=== PATIENT | male | born 1955 | race Caucasian/White ===

== ENCOUNTER → 2018-01-12 | Outpatient (CLI) | payer OTHER ==
--- NOTE | 2018-01-12 13:05 | US ---
EXAMINATION TYPE: US carotid duplex BILAT DATE OF EXAM: 01/12/2018 COMPARISON: NONE CLINICAL HISTORY: 62-year-old male I65.29 Carotid Stenosis. Bruit Technique: Duplex Doppler ultrasound examination. Indirect Doppler criteria was utilized. FINDINGS: RIGHT: Peak Systolic Velocity (PSV) cm/sec ----- Right CCA: 96.3 ----- Right ICA: 77.1 ----- Right ECA: 94.0 ICA/CCA ratio: 0.8 RIGHT: End Diastole cm/sec ----- Right CCA: 30.0 ----- Right ICA: 21.5 ----- Right ECA: 24.1 LEFT: Peak Systolic Velocity (PSV) cm/sec ----- Left CCA: 86.2 ----- Left ICA: 75.4 ----- Left ECA: 111.7 ICA/CCA ratio: 0.9 LEFT: End Diastole cm/sec ----- Left CCA: 24.1 ----- Left ICA: 25.9 ----- Left ECA: 20.4 VERTEBRALS (direction of flow): Right Vertebral: Antegrade Left Vertebral: Antegrade Rhythm: Normal Career Technical Counselor notes: Moderate amount of plaque visualized in bilateral proximal ICAs. No elevated veloc ities visualized. IMPRESSION: No hemodynamically significant stenosis appreciated in either internal carotid artery. Criteria for Assigning % of Stenosis / Diameter reduction (Estimation based on the indirect measurements of the internal carotid artery velocities (ICA PSV). 1. Normal (no stenosis)=ICA PSV < 125 cm/s: ratio < 2.0: ICA EDV<40 cm/s. 2. Less than 50% stenosis=ICA PSV < 125 cm/s: ratio < 2.0: ICA EDV<40 cm/s. 3. 50 to 69% stenosis=ICA PSV of 125 to 230 cm/s: ration 2.0 ? 4.0: ICA EDV 40-100 cm/s. 4. Greater than 70% stenosis to near occlusion= ICA PSV > 230 cm/s: ratio > 4.0: ICA EDV > 100 cm/s. 5. Near occlusion= ICA PSV velocities may be low or undetectable: variable ratio and ICA EDV. 6. Total occlusion=unable to detect flow.
== END | disposition home or self-care (01) ==
LOC: RADUSWWP 12:13
PROVIDERS: ATTEND Family Medicine
DX: I65.29 Occlusion and stenosis of unspecified carotid artery (principal)
CPT/HCPCS: 93880

== ENCOUNTER → 2018-01-27 | Outpatient (CLI) | payer MEDICARE, OTHER ==
--- NOTE | 2018-01-28 09:26 | ECHOF ---
Referral Reason:R01.1 heart murmur MEASUREMENTS -------- HEIGHT: 165.1 cm WEIGHT: 76.2 kg BP: IVSd: 1.0 cm (0.6 - 1.1) LVIDd: 2.8 cm (3.9 - 5.3) LVPWd: 1.0 cm (0.6 - 1.1) IVSs: 1.8 cm LVIDs: 1.7 cm LVPWs: 1.6 cm Ao Diam: 3.3 cm (2.0 - 3.7) AV Cusp: 2.0 cm (1.5 - 2.6) LA Diam: 2.2 cm (2.7 - 3.8) MV EXCURSION: 13.970 mm (> 18.000) MV EF SLOPE: 74 mm/s (70 - 150) EPSS: 0.4 cm MV E Angel: 0.63 m/s MV DecT: 257 ms MV A Angel: 0.86 m/s MV E/A Ratio: 0.73 RAP: 5.00 mmHg RVSP: 11.24 mmHg FINDINGS -------- Sinus rhythm. This was a technically adequate study. The left ventricular size is normal. Left ventricular wall thickness is normal. Overall left vent ricular systolic function is mildly impaired with, an EF between 45 - 50 %. Mid inferoseptal LV wal l motion is hypokinetic. Basal inferolateral hypokinesis. The right ventricle is normal in size and function. The left atrium is normal in size. The right atrium is normal in size. Aortic valve is trileaflet and is mildly thickened. The mitral valve leaflets are mildly thickened. There is trace mitral regurgitation. Trace tricuspid regurgitation present. The right ventricular systolic pressure, as measured by Dopp ler, is 11.24mmHg. Pulmonic valve appears structurally normal. The pericardium is normal. CONCLUSIONS -------- 1. Sinus rhythm. 2. This was a technically adequate study. 3. The left ventricular size is normal. 4. Left ventricular wall thickness is normal. 5. Overall left ventricular systolic function is mildly impaired with, an EF between 45 - 50 %. 6. Mid inferoseptal LV wall motion is hypokinetic. 7. Basal inferolateral hypokinesis. 8. The right ventricle is normal in size and function. 9. The left atrium is normal in size. 10. The right atrium is normal in size. 11. Aortic valve is trileaflet and is mildly thickened. 12. The mitral valve leaflets are mildly thickened. 13. There is trace mitral regurgitation. 14. Trace tricuspid regurgitation present. 15. The right ventricular systolic pressure, as measured by Doppler, is 11.24mmHg. 16. Pulmonic valve appears structurally normal. 17. The pericardium is normal. STEAM TUNNEL FEEDER: Lois Valencia RDCS
== END | disposition home or self-care (01) ==
LOC: RADECHMAIN 13:00
PROVIDERS: ATTEND Family Medicine
DX: I08.0 Rheumatic disorders of both mitral and aortic valves (principal)
CPT/HCPCS: 93306

== ENCOUNTER → 2018-02-27 | Outpatient (CLI) | payer MEDICARE, OTHER ==
[~2018-02-27] MED LIST: REGADENOSON 0.4 MG/5 ML SYRINGE IV ONE
--- NOTE | 2018-02-27 10:29 | P.STRESS ---
- Stress Test Note Stress Test Results/Findings: Exam Performed: NM stress lexiscan cardiolite Exam Date: 02/27/18 Reason for Exam: Chest Pain Height: 5 ft 5 in Weight: 75.296 kg Protocol: Dee Scan Stage: na Duration of Exercise: na Resting Heart Rate: 78 Resting Blood Pressure: 95/62 Maximum Achieved Heart Rate: 113 Maximum Achieved Blood Pressure: 114/80 85% PMHR: na 100% PMHR: na METS: na Technologist Comment: Stress Test Results/Findings: Baseline heart rate 78 beats a minute, Baseline blood pressure 95/62 mmHg Baseline 12-lead ECG shows sinus rhythm with normal ST segments Patient received Lexiscan infusion per protocol mild increase in heart rate up to 113 beats a minute Blood pressure remained stable No chest pain No ECG evidence of ischemia Nuclear portion will be reported separately
--- NOTE | 2018-02-27 10:47 | NM ---
EXAMINATION TYPE: NM stress lexiscan cardiolite DATE OF EXAM: 02/27/2018 COMPARISON: NONE HISTORY: Coronary artery disease per order. History of tobacco use quit 6 years ago, hypercholesterol emia, hypertension, and family history of heart attack presents with chest pain, difficulty in breath ing. TECHNIQUE: After the intravenous administration of 10.12 mCi Tc 99m Sestamibi - Cardiolite resting S PECT images acquired 45 minutes post injection. The patient received 0.4mg Lexiscan, 24.9 mCi Tc 99m Sestamibi - Stress images obtained [address] injection FINDINGS: Review of stress and rest SPECT images demonstrates no distinct perfusion abnormality. Gated analysi s shows normal wall motion with an estimated left ventricular ejection fraction of 56 %. IMPRESSION: No scintigraphic evidence for reversible ischemia.
== END | disposition home or self-care (01) ==
LOC: RADNMMAIN 07:39
PROVIDERS: ATTEND Family Medicine
DX: I25.10 Atherosclerotic heart disease of native coronary artery without angina pectoris (principal)
CPT/HCPCS: 93017; 78452; A9500; J2785

== ENCOUNTER → 2018-03-11 | Outpatient (CLI) | payer MEDICARE, OTHER ==
--- NOTE | 2018-03-12 07:17 | CT ---
EXAMINATION TYPE: CT chest w con DATE OF EXAM: 03/11/2018 COMPARISON: Prior chest CT May 18, 2013 HISTORY: Shortness of breath and history of chronic obstructive pulmonary disorder. CT DLP: 468 mGycm Automated exposure control for dose reduction was used. CONTRAST: CT scan of the chest is performed with IV Contrast, patient injected with 100ml mL of Isovue M300. FINDINGS: LUNGS: Fairly moderate underlying emphysematous change is redemonstrated most prominent in lung apice s. There is some peripheral reticulation and scarring in the right middle lobe near diaphragm. There is mild biapical pleural/parenchymal scarring redemonstrated. A few scattered micronodules are presen t, for reference subpleural region right middle lobe 2 mm nodule axial image 39 and left midlung ante rior 3 mm nodule axial image 24 unchanged from prior. No new greater than 5 mm parenchymal nodule or mass is seen. No suspicious consolidation or groundglass opacity is seen. No pleural effusion or pneu mothorax is noted bilaterally. MEDIASTINUM: There are no greater than 1 cm hilar or mediastinal lymph nodes. There are stable promin ent paracarinal lymph node measuring 1.5 x 0.8 cm axial image 21. No cardiomegaly or pericardial eff usion is seen. Coronary artery calcification is present which is noted marker for coronary artery di sease. There is mild to moderate atherosclerotic change to ectatic aorta redemonstrated. OTHER: Localizer redemonstrates dextroconvex scoliosis in the lumbar spine with moderate to severe m ultilevel spurring and disc space narrowing. Small degree of bilateral gynecomastia is redemonstrated . Only a few tiny splenule inferior to spleen are seen. Slight thickening to both adrenal glands is a gain seen favoring benign hyperplasia. Small hiatal hernia is noted. IMPRESSION: Chronic changes without acute pulmonary process.
== END | disposition home or self-care (01) ==
LOC: RADCTMAIN 15:39
PROVIDERS: ATTEND Family Medicine
DX: J44.9 Chronic obstructive pulmonary disease, unspecified (principal)
CPT/HCPCS: 71260; Q9967

== ENCOUNTER → 2018-04-02 | Outpatient (CLI) | payer MEDICARE, OTHER ==
--- NOTE | 2018-04-06 08:07 | USB ---
Reason for exam: clinical finding. Physical Findings: Nurse did not find any significant physical abnormalities on exam. US Breast BILAT Right limited breast ultrasound including focal area of concern, retroareolar and axilla demonstrates no cystic or solid lesion seen. Left limited breast ultrasound including focal area of concern, retroareolar and axilla demonstrates no cystic or solid lesion seen. The bilateral subareolar regions were scanned. No solid or cystic lesion. No appreciable gynecomastia by ultrasound to correspond to the mild gynecomastia seen on CT on 03/11/18. These results were verbally communicated with the patient and result sheet given to the patient on 04/02/18. ASSESSMENT: Negative, BI-RAD 1 RECOMMENDATION: Clinical management of both breasts. Manage patient on a clinical basis.
== END | disposition home or self-care (01) ==
LOC: RADUSWWP 14:45
PROVIDERS: ATTEND Family Medicine
DX: N62 Hypertrophy of breast (principal)

== ENCOUNTER 2019-07-07 10:29 | Day surgery (SDC) | payer MEDICARE, OTHER ==
[2019-07-05 09:16] VITALS: BMI 25.4
[~2019-07-07 10:29] MED LIST changes: +LACTATED RINGERS 1,000 ML IV SCH; +LIDOCAINE 1% 20 ML VIAL (10MG/ML) FOR IV START INTRADERMA PRN; -REGADENOSON 0.4 MG/5 ML SYRINGE IV ONE
[2019-07-07 11:58] VITALS: RESP 18; TEMP 97.4
[2019-07-07] MEDS ORDERED: PROPOFOL 10 MG/ML 20 ML VIAL IV ONE (12:16)
[2019-07-07] MEDS ORDERED: LIDOCAINE 1% INJ 10MG/ML (20 ML MDV) ONE (12:16)
--- NOTE | 2019-07-07 12:21 | P.GSHP ---
History of Present Illness H&P Date: 07/07/19 Chief Complaint: Screening colonoscopy This a 64-year-old male who presents today for screening colonoscopy. Patient denies a significant GI complaints. Past Medical History Past Medical History: COPD, GERD/Reflux, Myocardial Infarction (AR), Osteoarthritis (OA) Last Myocardial Infarction Date:: UNKNOWN SHOWS ON EKG ,ECHO" PER PATIENT History of Any Multi-Drug Resistant Organisms: None Reported Past Surgical History: Appendectomy, Back Surgery, Tonsillectomy Additional Past Surgical History / Comment(s): CERVICAL SURGERY WITH PLATE, COLONOSCOPY Past Anesthesia/Blood Transfusion Reactions: No Reported Reaction Smoking Status: Former smoker - Past Family History Mother Family Medical History: No Reported History Medications and Allergies Home Medications Medication Instructions Recorded Confirmed Type Albuterol Inhaler [Ventolin Hfa 1 - 2 puff INHALATION RT-Q6H PRN 07/05/19 07/07/19 History Inhaler] Albuterol Sulfate [Accuneb] 0.63 mg INHALATION TID 07/05/19 07/07/19 History Aspirin 81 mg PO DAILY 07/05/19 07/07/19 History Diclofenac Sodium [Voltaren] 50 mg PO TID PRN 07/05/19 07/07/19 History Gabapentin [Neurontin] 300 mg PO TID 07/05/19 07/07/19 History Gemfibrozil [Lopid] 600 mg PO DAILY 07/05/19 07/07/19 History Ipratropium Nebulized [Atrovent 0.2 mg INHALATION TID 07/05/19 07/07/19 History Nebulized 0.2 MG/ML] Lisinopril-Hctz 20-12.5 mg 1 tab PO DAILY 07/05/19 07/07/19 History [Zestoretic 20-12.5] Omeprazole 20 mg PO DAILY 07/05/19 07/07/19 History Tiotropium 18 Mcg/Puff [Spiriva] 2 puff INHALATION DAILY 07/05/19 07/07/19 History Allergies Allergy/AdvReac Type Severity Reaction Status Date / Time Srhojdw-Eut-Xgi Reductase Allergy MUSCLE Verified 07/07/19 11:41 Inhibitor PAIN , ELEVATED LIVER ENZYMES Surgical - Exam Vital Signs Temp Pulse Resp BP Pulse Ox 97.4 F L 83 18 142/67 96 07/07/19 11:56 07/07/19 11:56 07/07/19 11:56 07/07/19 11:56 07/07/19 11:56 - General well developed, well nourished, no distress - Eyes PERRL - ENT normal pinna - Neck no masses - Respiratory normal expansion - Cardiovascular Rhythm: regular - Abdomen Abdomen: soft, non tender Assessment and Plan Assessment: We'll perform screening colonoscopy.
--- NOTE | 2019-07-07 12:37 | P.OP ---
Date of Procedure: 07/07/19 Preoperative Diagnosis: Screening colonoscopy Postoperative Diagnosis: Normal colon Procedure(s) Performed: Colonoscopy Anesthesia: MAC Surgeon: Dallas Delvalle Pathology: none sent Condition: stable Disposition: PACU Description of Procedure: PROCEDURE: The patient was placed on the endoscopy table in the lateral position. Digital rectal examination was performed which revealed no abnormalities. The prostate was symmetrical without nodules. Flexible colonoscope was then placed in the patient's anus and passed throughout the entire colon. The ileocecal valve was visualized. The cecum, ascending, transverse, descending and sigmoid colon were normal. The rectum was normal as well. There were no masses, polyps or diverticula noted in the entire colon. SUMMARY OF FINDINGS: Normal colonoscopy.
[2019-07-07 13:12] VITALS: BP 122/75; PULSE 91
== END 2019-07-07 13:49 | disposition home or self-care (01) ==
LOC: ORWHC2ENDO 10:29
PROVIDERS: ATTEND Surgery
DX: Z12.11 Encounter for screening for malignant neoplasm of colon (principal); J44.9 Chronic obstructive pulmonary disease, unspecified; K21.9 Gastro-esophageal reflux disease without esophagitis; I25.2 Old myocardial infarction; M19.90 Unspecified osteoarthritis, unspecified site; Z98.1 Arthrodesis status; Z79.82 Long term (current) use of aspirin; Z79.899 Other long term (current) drug therapy; Z88.8 Allergy status to other drugs, medicaments and biological substances
CPT/HCPCS: J2001; J2704; G0121

== ENCOUNTER 2020-07-20 10:48 | Inpatient (IN) | payer MEDICARE, OTHER ==
[2020-07-20] MEDS ORDERED: ETODOLAC 200 MG CAPSULE PO PRN (17:20)
[2020-07-20] MEDS ORDERED: ALBUTEROL NEBULIZED 2.5 MG/3 ML INHALATION PRN (17:20)
[2020-07-20 18:16] LABS: Anisocytosis Slight; Basophils # (A) 0.1 k/uL (0-0.2); Basophils % (A) 0 %; Eosinophils # (A) 0.4 k/uL (0-0.7); Eosinophils % (A) 3 %; HCT 22.8 % (39.0-53.0); Hypochromasia Marked; Lymphocytes # (A) 1.5 k/uL (1.0-4.8); Lymphocytes % (A) 12 %; MCH 25.4 pg (25.0-35.0); MCHC 29.6 g/dL (31.0-37.0); MCV 85.5 fL (80.0-100.0); Mean Platelet Volume 6.4; Monocytes # (A) 0.8 k/uL (0-1.0); Monocytes % (A) 6 %; Neutrophils # (A) 10.1 k/uL (1.3-7.7); Neutrophils % (A) 77 %; Platelet Count 950 k/uL (150-450); Poikilocytosis Slight; RBC 2.66 m/uL (4.30-5.90); RDW 16.2 % (11.5-15.5); WBC 13.2 k/uL (3.8-10.6)
[2020-07-20 18:26] LABS: HGB 6.8 gm/dL (13.0-17.5)
[2020-07-20] MEDS ORDERED: FUROSEMIDE 10 MG/ML 2 ML VIAL IV ONE (18:45)
--- NOTE | 2020-07-20 19:02 | HP ---
HISTORY AND PHYSICAL This is a 65-year-old white male who was admitted with a hemoglobin of 6.6 and severe pallor, lightheadedness, dizziness with ambulation, worse weakness in his left leg. Due to severe anemia he was admitted to the hospital and worked up for GI bleeding and blood transfusion will be given. HOME MEDICATIONS: Home medications include: 1. Ventolin nebulizer 2.5 mg q.i.d. 2. Aspirin 81 mg daily. 3. Lodine 200 mg t.i.d. p.r.n. 4. Fenofibrate 160 mg daily. 5. Neurontin 300 t.i.d. 6. DuoNeb updraft q.i.d. 7. Linzess 290 mg daily. 8. Lisinopril hydrochlorothiazide 20/12.5 one daily. 9. Protonix 40 mg daily. REVIEW OF SYSTEMS: Fourteen-point review of systems: Weakness, lethargy, lightheadedness, dizziness, pallor, dizziness with ambulation. LABS: Repeat labs are pending in the hospital. PHYSICAL EXAMINATION: He looks dehydrated with poor skin pallor, pasty skin. Pulse 91, respiratory rate 16- 18, blood pressure 97/57, oxygen saturation 98% on room air. CARDIOVASCULAR: S1, S2. LUNGS: Decreased breath sounds x4. MUSCULOSKELETAL: Tenderness to palpation of paralumbar spinal muscles. He looks his stated age. OPHTHALMOLOGIC: He wears glasses. Rectal exam not done at this point. Stool Hemoccult. ASSESSMENT: 1. Severe anemia, unclear etiology, without gastrointestinal bleed. 2. History of chronic constipation. 3. Lumbar disc disease. 4. Neuropathy. Please see further orders. MMODL / IJN: [id number] /
--- NOTE | 2020-07-20 19:25 | XR ---
EXAMINATION: XR chest 2V DATE AND TIME: 07/20/2020 7:15 PM CLINICAL INDICATION: PHH; anemia high wbc TECHNIQUE: AP and lateral views COMPARISON: 08/16/2014 FINDINGS: The lungs are clear. The pleural spaces are negative. The cardiac silhouette is not enlarged. The remainder of the mediastinal silhouette is unremarkable. The skeletal structures and soft tissues are negative for acute findings. IMPRESSION: NO ACUTE PROCESS.
[2020-07-20 19:45] LABS: Prothrombin Time 10.2 sec (9.0-12.0)
[2020-07-20] MEDS ORDERED: IPRATROPIUM 0.5 MG/2.5 ML NEBU INHALATION SCH (20:00)
[2020-07-20] MEDS ORDERED: ALBUTEROL NEBULIZED 2.5 MG/3 ML INHALATION SCH (20:00)
[2020-07-20] MEDS: IPRATROPIUM-ALBUTEROL 3 ML NEB INHALATION SCH (20:05)
[2020-07-20] MEDS: SODIUM CHLORIDE 0.9% 1,000 ML IV SCH (20:15)
[2020-07-20] MEDS: GABAPENTIN 300 MG CAP PO SCH (21:16)
[2020-07-20 21:47] LABS: Appearance,Urine Clear (Clear); Bilirubin,Urine Negative (Negative); Blood,Urine Negative (Negative); Color,Urine Light Yellow; Glucose,Urine (UA) Negative (Negative); Ketones,Urine Negative (Negative); Leukocyte Esterase,Urine Negative (Negative); Nitrite,Urine Negative (Negative); Protein,Urine Negative (Negative); Specific Gravity,Urine 1.009 (1.001-1.035); Urobilinogen,Urine <2.0 mg/dL (<2.0)
[2020-07-21] MEDS: IPRATROPIUM-ALBUTEROL 3 ML NEB INHALATION SCH ×3 (07:07→19:23)
[2020-07-21] MEDS ORDERED: PANTOPRAZOLE 40 MG TABLET PO SCH (07:30)
[2020-07-21] MEDS ORDERED: NON FORMULARY DRUG (Tiotropium 18 Mcg/Puff 1 PUFF Inhaler) INHALATION SCH (08:00)
[2020-07-21] MEDS: FENOFIBRATE 160 MG TAB PO SCH (09:14)
[2020-07-21] MEDS: LISINOPRIL-HCTZ 20-12.5 MG 1 EACH TAB PO SCH (09:14)
[2020-07-21] MEDS: GABAPENTIN 300 MG CAP PO SCH ×3 (09:14→21:32)
[2020-07-21] MEDS: ASPIRIN 81 MG PO SCH (09:14)
[2020-07-21] MEDS: Linaclotide [Linzess] PO SCH (09:15)
[2020-07-21 10:59] LABS: Anisocytosis Slight; Basophils # (A) 0.1 k/uL (0-0.2); Basophils % (A) 0 %; Eosinophils # (A) 0.2 k/uL (0-0.7); Eosinophils % (A) 1 %; HCT 27.1 % (39.0-53.0); Hypochromasia Marked; Lymphocytes # (A) 1.2 k/uL (1.0-4.8); Lymphocytes % (A) 7 %; MCH 26.3 pg (25.0-35.0); MCHC 30.6 g/dL (31.0-37.0); Mean Platelet Volume 6.3; Monocytes # (A) 0.9 k/uL (0-1.0); Monocytes % (A) 5 %; Neutrophils % (A) 84 %; Platelet Count 936 k/uL (150-450); Poikilocytosis Slight; RBC 3.15 m/uL (4.30-5.90); RDW 16.1 % (11.5-15.5); WBC 16.6 k/uL (3.8-10.6)
[2020-07-21 11:09] LABS: ALT 14 U/L (4-49); AST 19 U/L (17-59); African American GFR (CKD) >90 (>60 ml/min/1.73 sqM); Albumin 2.9 g/dL (3.5-5.0); Alkaline Phosphatase 62 U/L (38-126); Anion Gap 7 mmol/L; Blood Urea Nitrogen 13 mg/dL (9-20); Calcium 8.3 mg/dL (8.4-10.2); Carbon Dioxide 23 mmol/L (22-30); Chloride 101 mmol/L (98-107); Glucose 100 mg/dL (74-99); HGB 8.3 gm/dL (13.0-17.5); Non-African American GFR(CKD) >90 (>60 ml/min/1.73 sqM); Sodium 131 mmol/L (137-145); Total Bilirubin 0.3 mg/dL (0.2-1.3); Total Protein 6.2 g/dL (6.3-8.2)
--- NOTE | 2020-07-21 12:03 | P.CONS ---
History of Present Illness - Reason for Consult Consult date: 07/21/20 Anemia Requesting physician: Axel Borden - Chief Complaint Fatigue and abdominal pain - History of Present Illness Mr. Anderson is a 65-year-old male who presented to [facility] with complaints of symptomatic anemia. On arrival hemoglobin 6.6. He has a known history of COPD, GERD, myocardial infarction, arthritis, appendectomy, constipation and irritable bowel syndrome. Complained of lightheadedness and dizziness with movement and ambulation. Admits to abdominal discomfort and exertional dyspnea. Described in lower abdomen, on exam mild tenderness RUQ. He admits to one episode of dark reddish bowel movement last week but denies any recent, although last bowel movement was 2 days ago. He denies any nausea or vomiting. Last Colonoscopy June 2019 unremarkable. No EGD per patient in history. We have been consulted to further evaluate patient symptomatic anemia. Noted in his CBC was also thrombocytosis, platelet coung 936K today, and leukocytosis, neutrophils 16.6. General surgery is following and plan is for GI work-up Friday. He does admit to weight loss and decreased po intake over the past few months. Review of Systems All systems: negative Constitutional: Reports as per HPI Past Medical History Past Medical History: COPD, GERD/Reflux, Myocardial Infarction (PR), Osteoarthritis (OA) Last Myocardial Infarction Date:: UNKNOWN SHOWS ON EKG ,ECHO" PER PATIENT History of Any Multi-Drug Resistant Organisms: None Reported Past Surgical History: Appendectomy, Back Surgery, Tonsillectomy Additional Past Surgical History / Comment(s): CERVICAL SURGERY WITH PLATE, COLONOSCOPY Past Anesthesia/Blood Transfusion Reactions: No Reported Reaction Past Psychological History: No Psychological Hx Reported Smoking Status: Former smoker Past Alcohol Use History: None Reported Additional Past Alcohol Use History / Comment(s): STARTED SMOKING AT AGE 12 QUIT AT AGE 57 SMOKED 1- 3 PPD Past Drug Use History: None Reported - Past Family History Mother Family Medical History: No Reported History Medications and Allergies Home Medications Medication Instructions Recorded Confirmed Type Aspirin 81 mg PO DAILY 07/05/19 07/20/20 History Diclofenac Sodium [Voltaren] 50 mg PO TID PRN 07/05/19 07/20/20 History Gabapentin [Neurontin] 300 mg PO TID 07/05/19 07/20/20 History Ipratropium Nebulized [Atrovent 0.5 mg INHALATION RT-TID 07/05/19 07/20/20 History Nebulized 0.2 MG/ML] Lisinopril-Hctz 20-12.5 mg 1 tab PO DAILY 07/05/19 07/20/20 History [Zestoretic 20-12.5] Omeprazole 20 mg PO DAILY 07/05/19 07/20/20 History Tiotropium 18 Mcg/Puff [Spiriva] 1 cap INHALATION RT-DAILY 07/05/19 07/20/20 History gemfibroziL [Lopid] 600 mg PO DAILY 07/05/19 07/20/20 History Albuterol Nebulized [Ventolin 2.5 mg INHALATION RT-TID 07/20/20 07/20/20 History Nebulized] Albuterol Sulfate [Ventolin HFA] 2 puff INHALATION RT-QID PRN 07/20/20 07/20/20 History Linaclotide [Linzess] 290 mcg PO DAILY 07/20/20 07/20/20 History Allergies Allergy/AdvReac Type Severity Reaction Status Date / Time Bpijguj-Pio-Egu Reductase AdvReac MUSCLE Verified 07/20/20 17:24 Inhibitor PAIN , ELEVATED LIVER ENZYMES Physical Exam Vitals: Vital Signs Temp Pulse Pulse Resp BP BP Pulse Ox 07/21/20 11:47 16 07/21/20 08:00 98.9 F 96 16 97/61 98 07/21/20 07:19 80 07/21/20 07:07 82 07/21/20 04:00 97 18 108/56 97 07/21/20 01:40 87 18 98/52 07/21/20 00:00 91 18 88/55 100 07/20/20 23:22 98 F 91 18 88/55 100 07/20/20 22:52 98.2 F 87 20 85/53 98 07/20/20 22:42 98.3 F 87 18 84/54 98 07/20/20 20:14 84 07/20/20 20:10 92 L 07/20/20 20:06 87 07/20/20 20:00 98.4 F 84 18 92/53 96 07/20/20 16:00 91 16 97/57 98 Intake and Output 07/20/20 07/21/20 07/21/20 22:59 06:59 14:59 Intake Total 240 310 Balance 240 310 Intake: Oral 240 Blood Product 0 310 Rc As-1 Unit 0 310 [id number] Other: Voiding Method Toilet Toilet Toilet Weight 66.8 kg 64.7 kg - General well developed, well nourished, no distress - Eyes PERRL - ENT normal mucus membranes - Neck no masses, supple - Respiratory normal expansion, no increased effort CTA - Cardiovascular Rhythm: regular, Tachy - Abdomen soft, RUQ mild tenderness on palpation - Ext/MCS: No unilateral weakness or edema Psych: Calm Neuro: Non Focal Results CBC & Chem 7: 07/21/20 10:21 07/21/20 10:21 Labs: Abnormal Lab Results - Last 24 Hours (Table) 07/20/20 07/20/20 07/21/20 Range/Units 17:42 18:52 10:21 WBC 13.2 H (3.8-10.6) k/uL RBC 2.66 L (4.30-5.90) m/uL Hgb 6.8 L* (13.0-17.5) gm/dL Hct 22.8 L (39.0-53.0) % MCHC 29.6 L (31.0-37.0) g/dL RDW 16.2 H (11.5-15.5) % Plt Count 950 H (150-450) k/uL Neutrophils # 10.1 H (1.3-7.7) k/uL Sodium 131 L (137-145) mmol/L Glucose 100 H (74-99) mg/dL Calcium 8.3 L (8.4-10.2) mg/dL Total Protein 6.2 L (6.3-8.2) g/dL Albumin 2.9 L (3.5-5.0) g/dL Crossmatch See Detail 07/21/20 Range/Units 10:21 WBC 16.6 H (3.8-10.6) k/uL RBC 3.15 L (4.30-5.90) m/uL Hgb 8.3 L D (13.0-17.5) gm/dL Hct 27.1 L (39.0-53.0) % MCHC 30.6 L (31.0-37.0) g/dL RDW 16.1 H (11.5-15.5) % Plt Count 936 H (150-450) k/uL Neutrophils # 14.0 H (1.3-7.7) k/uL Sodium (137-145) mmol/L Glucose (74-99) mg/dL Calcium (8.4-10.2) mg/dL Total Protein (6.3-8.2) g/dL Albumin (3.5-5.0) g/dL Crossmatch Assessment and Plan (1) Normocytic anemia Current Visit: Yes Status: Acute Code(s): D64.9 - ANEMIA, UNSPECIFIED SNOMED Code(s): 917780401 (2) Thrombocytosis Current Visit: Yes Status: Acute Code(s): D47.3 - ESSENTIAL (HEMORRHAGIC) THROMBOCYTHEMIA SNOMED Code(s): 9756799 (3) Leukocytosis Current Visit: Yes Status: Acute Code(s): D72.829 - ELEVATED WHITE BLOOD CELL COUNT, UNSPECIFIED SNOMED Code(s): 517811716 Plan: Normocytic Anemia: - Iron studies and nutritional work-up has been ordered, iron studies maybe altered given they were drawn after tranfusion of PRBC - GI exam scheduled for tomorrow (07/22) with gen surgery) - Further evaluation after results of above Thrombocytosis: - THis maybe reactive to an iron deficiency or acute blood loss anemia, although quite high - Consideration of myeoproliferative disorders within differential - CT abdomen and pelvis to further evaluate after colonoscopy and EGD is completed Leukocytosis: - Reactive most likely etiology - Again will further assess for possible underlying MPD after initial GI work- up by Gen Surgery - Infectious work-up neg/pending Physician Attest: I have completed the full history and physical and developed the above impression and plan, agree with dictation by Gladys Carney NP. Dictated as a scribe.
[2020-07-21 12:22] LABS: Reticulocyte % 3.2 % (0.5-2.0)
--- NOTE | 2020-07-21 14:10 | P.GSCN ---
History of Present Illness Consult date: 07/21/20 History of present illness: CHIEF COMPLAINT: Anemia HISTORY OF PRESENT ILLNESS: This is a 65-year-old male with a known history of COPD, GERD, myocardial infarction, arthritis, appendectomy, constipation and irritable bowel syndrome. Patient was admitted to the hospital for a hemoglobin of 6.6 with lightheadedness and dizziness with ambulation. patient does report some mild mid to lower abdominal discomfort. He has been having dark reddish bowel movements. He denies any bright red blood in the stools. He reports his last bowel movement was 2 days ago. He denies any nausea or vomiting. Patient does report feeling more short of breath and weak. He has been on Lodine daily for pain. He reports never having an EGD. Patient does report possibly having a colonoscopy a few months ago. However last colonoscopy in the computer system is from June 2019 which does revealing normal colonoscopy. PAST MEDICAL HISTORY: See list. PAST SURGICAL HISTORY: See list. MEDICATIONS: See list. ALLERGIES: See list. SOCIAL HISTORY: No illicit drug use. REVIEW OF SYSTEMS: CONSTITUTIONAL: Denies fever or chills. HEENT: Denies blurred vision, vision changes, or eye pain. Denies hemoptysis CARDIOVASCULAR: Denies chest pain or pressure. RESPIRATORY: No shortness of breath. GASTROINTESTINAL: See HPI for pertinent findings HEMATOLOGIC: Denies bleeding disorders. GENITOURINARY: Denies any blood in urine or increased urinary frequency. SKIN: Denies pruitis. Denies rash. PHYSICAL EXAM: VITAL SIGNS: Reviewed GENERAL: Well-developed in no acute distress. HEENT: No sclera icterus. Extraocular movements grossly intact. Moist buccal mucosa. Head is atraumatic, normocephalic. No nasal drainage. ABDOMEN: Soft. Nondistended. Mild lower abdominal tenderness with palpation NEUROLOGIC: Alert and oriented. Cranial nerves II through XII grossly intact. LABORATORY DATA: WBC 16.6 hemoglobin has gone up from 6.8-8.3 UA negative IMAGING: ASSESSMENT: 1. Acute blood loss anemia with possible GI bleed 2. daily NSAID use 3. Prior history of myocardial infarction 4. History of COPD 5. History of osteoarthritis 6. History of GERD PLAN: -Plan for EGD and colonoscopy on Friday with Dr. Delvalle -start GoLYTELY prep and clear liquid diet on Friday -Nothing by mouth after midnight on Friday -Discontinue Lodine -Check stool for occult blood -We will switch patient to Protonix 40 mg IV daily Thank you for this consultation Physician Physicist Astrophysics note has been reviewed by physician. Signing provider agrees with the documented findings, assessment, and plan of care. Past Medical History Past Medical History: COPD, GERD/Reflux, Myocardial Infarction (PA), Osteoarthritis (OA) Last Myocardial Infarction Date:: UNKNOWN SHOWS ON EKG ,ECHO" PER PATIENT History of Any Multi-Drug Resistant Organisms: None Reported Past Surgical History: Appendectomy, Back Surgery, Tonsillectomy Additional Past Surgical History / Comment(s): CERVICAL SURGERY WITH PLATE, COLONOSCOPY Past Anesthesia/Blood Transfusion Reactions: No Reported Reaction Past Psychological History: No Psychological Hx Reported Smoking Status: Former smoker Past Alcohol Use History: None Reported Additional Past Alcohol Use History / Comment(s): STARTED SMOKING AT AGE 12 QUIT AT AGE 57 SMOKED 1- 3 PPD Past Drug Use History: None Reported - Past Family History Mother Family Medical History: No Reported History Medications and Allergies Home Medications Medication Instructions Recorded Confirmed Type Aspirin 81 mg PO DAILY 07/05/19 07/20/20 History Diclofenac Sodium [Voltaren] 50 mg PO TID PRN 07/05/19 07/20/20 History Gabapentin [Neurontin] 300 mg PO TID 07/05/19 07/20/20 History Ipratropium Nebulized [Atrovent 0.5 mg INHALATION RT-TID 07/05/19 07/20/20 History Nebulized 0.2 MG/ML] Lisinopril-Hctz 20-12.5 mg 1 tab PO DAILY 07/05/19 07/20/20 History [Zestoretic 20-12.5] Omeprazole 20 mg PO DAILY 07/05/19 07/20/20 History Tiotropium 18 Mcg/Puff [Spiriva] 1 cap INHALATION RT-DAILY 07/05/19 07/20/20 History gemfibroziL [Lopid] 600 mg PO DAILY 07/05/19 07/20/20 History Albuterol Nebulized [Ventolin 2.5 mg INHALATION RT-TID 07/20/20 07/20/20 History Nebulized] Albuterol Sulfate [Ventolin HFA] 2 puff INHALATION RT-QID PRN 07/20/20 07/20/20 History Linaclotide [Linzess] 290 mcg PO DAILY 07/20/20 07/20/20 History Allergies Allergy/AdvReac Type Severity Reaction Status Date / Time Immxsfa-Ern-Cqt Reductase AdvReac MUSCLE Verified 07/20/20 17:24 Inhibitor PAIN , ELEVATED LIVER ENZYMES Surgical - Exam Vital Signs Pulse Resp BP Pulse Ox 91 16 97/57 98 07/20/20 16:00 07/20/20 16:00 07/20/20 16:00 07/20/20 16:00 Results - Labs 07/21/20 10:21 07/21/20 10:21 Abnormal Lab Results - Last 24 Hours (Table) 07/20/20 07/20/20 07/21/20 Range/Units 17:42 18:52 10:21 WBC 13.2 H (3.8-10.6) k/uL RBC 2.66 L (4.30-5.90) m/uL Hgb 6.8 L* (13.0-17.5) gm/dL Hct 22.8 L (39.0-53.0) % MCHC 29.6 L (31.0-37.0) g/dL RDW 16.2 H (11.5-15.5) % Plt Count 950 H (150-450) k/uL Neutrophils # 10.1 H (1.3-7.7) k/uL Retic Count (0.5-2.0) % Sodium 131 L (137-145) mmol/L Glucose 100 H (74-99) mg/dL Calcium 8.3 L (8.4-10.2) mg/dL Total Protein 6.2 L (6.3-8.2) g/dL Albumin 2.9 L (3.5-5.0) g/dL Crossmatch See Detail 07/21/20 07/21/20 Range/Units 10:21 10:21 WBC 16.6 H (3.8-10.6) k/uL RBC 3.15 L (4.30-5.90) m/uL Hgb 8.3 L D (13.0-17.5) gm/dL Hct 27.1 L (39.0-53.0) % MCHC 30.6 L (31.0-37.0) g/dL RDW 16.1 H (11.5-15.5) % Plt Count 936 H (150-450) k/uL Neutrophils # 14.0 H (1.3-7.7) k/uL Retic Count 3.2 H (0.5-2.0) % Sodium (137-145) mmol/L Glucose (74-99) mg/dL Calcium (8.4-10.2) mg/dL Total Protein (6.3-8.2) g/dL Albumin (3.5-5.0) g/dL Crossmatch Diabetes panel 07/21/20 Range/Units 10:21 Sodium 131 L (137-145) mmol/L Potassium 5.0 (3.5-5.1) mmol/L Chloride 101 (98-107) mmol/L Carbon Dioxide 23 (22-30) mmol/L BUN 13 (9-20) mg/dL Creatinine 0.80 (0.66-1.25) mg/dL Glucose 100 H (74-99) mg/dL Calcium 8.3 L (8.4-10.2) mg/dL AST 19 (17-59) U/L ALT 14 (4-49) U/L Alkaline Phosphatase 62 (38-126) U/L Total Protein 6.2 L (6.3-8.2) g/dL Albumin 2.9 L (3.5-5.0) g/dL Calcium panel 07/21/20 Range/Units 10:21 Calcium 8.3 L (8.4-10.2) mg/dL Albumin 2.9 L (3.5-5.0) g/dL Pituitary panel 07/21/20 Range/Units 10:21 Sodium 131 L (137-145) mmol/L Potassium 5.0 (3.5-5.1) mmol/L Chloride 101 (98-107) mmol/L Carbon Dioxide 23 (22-30) mmol/L BUN 13 (9-20) mg/dL Creatinine 0.80 (0.66-1.25) mg/dL Glucose 100 H (74-99) mg/dL Calcium 8.3 L (8.4-10.2) mg/dL Adrenal panel 07/21/20 Range/Units 10:21 Sodium 131 L (137-145) mmol/L Potassium 5.0 (3.5-5.1) mmol/L Chloride 101 (98-107) mmol/L Carbon Dioxide 23 (22-30) mmol/L BUN 13 (9-20) mg/dL Creatinine 0.80 (0.66-1.25) mg/dL Glucose 100 H (74-99) mg/dL Calcium 8.3 L (8.4-10.2) mg/dL Total Bilirubin 0.3 (0.2-1.3) mg/dL AST 19 (17-59) U/L ALT 14 (4-49) U/L Alkaline Phosphatase 62 (38-126) U/L Total Protein 6.2 L (6.3-8.2) g/dL Albumin 2.9 L (3.5-5.0) g/dL
[2020-07-21] MEDS ORDERED: HYDROcodone/APAP 5-325MG 1 EACH TAB PO PRN (14:47)
[2020-07-21] MEDS ORDERED: ALPRAZolam 0.25 MG TAB PO PRN (14:47)
[2020-07-21] MEDS ORDERED: HYDROmorphone 0.5 MG/0.5 ML SYRINGE IVP PRN (14:47)
[2020-07-21] MEDS ORDERED: ACETAMINOPHEN TAB 500 MG TAB PO PRN (14:47)
--- NOTE | 2020-07-21 15:33 | PN ---
PROGRESS NOTE DATE OF SERVICE: 07/21/2020 I am covering for Dr. Borden. This 65-year-old gentleman admitted with severe anemia is being closely monitored at this time. The patient's hemoglobin was 6.8. After transfusion it is 8.3. Multiple consultants are following the patient closely. No GI bleed was noted. The patient apparently had a colonoscopy recently by Dr. Delvalle which was reported as normal. The patient is being closely monitored at this time. Today's hemoglobin is 8.3, as mentioned earlier. White count is elevated. Past medical history reviewed. REVIEW OF SYSTEMS: CARDIOVASCULAR SYSTEM: No angina, palpitations. RESPIRATORY SYSTEM: As mentioned earlier. GI: No nausea, vomiting, diarrhea. : No dysuria or retention. NERVOUS SYSTEM: No numbness, weakness. CURRENT MEDICATIONS: Reviewed. They include Ventolin, DuoNeb, aspirin, Lofibra, Neurontin, Zestoretic, Linzess, Protonix and GoLYTELY. PHYSICAL EXAMINATION: Patient is alert and oriented x3. Pulse 84, blood pressure 112/63, respirations 16, temperature normal. Pulse ox 99% on 2 L. HEENT: Conjunctivae pale. NECK: No jugular venous distention. CARDIOVASCULAR SYSTEM: S1, S2 muffled. RESPIRATORY SYSTEM: Breath sounds diminished at the bases. No rhonchi. No crackles. ABDOMEN: Soft. NERVOUS SYSTEM: No focal deficit. LABS: WBC 16.6, hemoglobin 8.3. ASSESSMENT: 1. Severe normocytic anemia for evaluation. Rule out GI bleed. 2. Increased white count. 3. Status post blood transfusion. 4. Increased platelets. 5. Hyponatremia. 6. History of chronic obstructive pulmonary disease. 7. Gastroesophageal reflux disease. 8. Degenerative joint disease. 9. History of back surgery. 10.History of appendectomy. 11.History of cervical surgery. 12.Remote history of nicotine dependence. RECOMMENDATIONS AND DISCUSSION: In this 65-year-old gentleman who presented with multiple complex medical issues, we will monitor the patient closely, continue the current medications, continue with symptomatic treatment. Surgery has seen the patient. Hematology/Oncology has also been consulted and recommended further evaluation. Suggest planning a repeat colonoscopy and EGD on Friday. GoLYTELY has been initiated. Guarded prognosis. Further recommendations to follow. Will repeat the hemoglobin. MMODL / IJN: [id number] /
[2020-07-21] MEDS: PANTOPRAZOLE 40 MG/10 ML VIAL IVP SCH (16:38)
[2020-07-21] MEDS: SODIUM CHLORIDE 0.9% 1,000 ML IV SCH (16:38)
--- NOTE | 2020-07-21 18:59 | CT ---
EXAMINATION TYPE: CT ChestAbdPelvis wo con DATE OF EXAM: 07/21/2020 COMPARISON: 03/11/2018 and prior. HISTORY: Generalized pain CT DLP: 609.1 mGycm. Automated Exposure Control for Dose Reduction was Utilized. TECHNIQUE: CT scan of the thorax, abdomen and pelvis is performed without IV contrast. FINDINGS: LUNGS: There is moderate centrilobular emphysema. There is mild bibasilar atelectasis. No significant infiltrate, consolidation, pleural effusion or pneumothorax. No suspicious pulmonary nodule. MEDIASTINUM: There are no greater than 1 cm hilar or mediastinal lymph nodes. No pericardial effusi on is seen. OTHER: No additional significant abnormality is seen. LIVER/GB: No significant abnormality is appreciated. PANCREAS: No significant abnormality is seen. SPLEEN: No significant abnormality is seen. ADRENALS: Stable bilateral mild thickening of the adrenal glands. KIDNEYS: No significant abnormality is seen. BOWEL: Multiple mildly dilated mid to distal small bowel loops with fecal sign seen. Associated surro unding mild fat stranding. No free air or fluid. GENITAL ORGANS: No gross abnormality seen. LYMPH NODES: No greater than 1cm abdominal or pelvic lymph nodes are appreciated. OSSEOUS STRUCTURES: No acute abnormality is seen. Mild thoracic and severe lumbar spondylosis. OTHER: No significant additional abnormality is seen. IMPRESSION: Multiple mildly dilated mid to distal small bowel loops, concerning for low-grade partial small bowel obstruction. No free air or fluid. No acute cardiopulmonary abnormality. Chronic findings as above.
[2020-07-21] MEDS ORDERED: IOPAMIDOL CONTRAST (ORAL USE) VIAL PO PRN (21:06)
[2020-07-21 21:20] LABS: Ferritin 101.6 ng/mL (22.0-322.0); Folate, Serum 9.6 ng/mL
[2020-07-21 21:22] LABS: % Iron Saturation 1.96 (15.00-50.00)
[2020-07-22 07:40] LABS: Anisocytosis Slight; Basophils # (A) 0.1 k/uL (0-0.2); Basophils % (A) 1 %; Eosinophils # (A) 0.1 k/uL (0-0.7); Eosinophils % (A) 1 %; HCT 27.6 % (39.0-53.0); HGB 8.2 gm/dL (13.0-17.5); Hypochromasia Marked; Lymphocytes # (A) 1.5 k/uL (1.0-4.8); Lymphocytes % (A) 10 %; MCH 25.6 pg (25.0-35.0); MCHC 29.8 g/dL (31.0-37.0); MCV 85.7 fL (80.0-100.0); Mean Platelet Volume 6.4; Monocytes # (A) 1.1 k/uL (0-1.0); Monocytes % (A) 7 %; Neutrophils # (A) 11.8 k/uL (1.3-7.7); Neutrophils % (A) 79 %; Platelet Count 905 k/uL (150-450); Poikilocytosis Slight; RBC 3.22 m/uL (4.30-5.90); RDW 16.2 % (11.5-15.5); WBC 14.9 k/uL (3.8-10.6)
[2020-07-22 07:55] LABS: African American GFR (CKD) >90 (>60 ml/min/1.73 sqM); Anion Gap 5 mmol/L; Blood Urea Nitrogen 14 mg/dL (9-20); Calcium 8.1 mg/dL (8.4-10.2); Carbon Dioxide 27 mmol/L (22-30); Chloride 99 mmol/L (98-107); Glucose 96 mg/dL (74-99); Non-African American GFR(CKD) >90 (>60 ml/min/1.73 sqM); Potassium 4.6 mmol/L (3.5-5.1); Sodium 131 mmol/L (137-145)
[2020-07-22] MEDS: IPRATROPIUM-ALBUTEROL 3 ML NEB INHALATION SCH ×3 (08:02→20:17)
[2020-07-22] MEDS: LISINOPRIL-HCTZ 20-12.5 MG 1 EACH TAB PO SCH (08:55)
[2020-07-22] MEDS: PANTOPRAZOLE 40 MG/10 ML VIAL IVP SCH (08:55)
[2020-07-22] MEDS: GABAPENTIN 300 MG CAP PO SCH ×3 (08:56→21:39)
[2020-07-22] MEDS: FENOFIBRATE 160 MG TAB PO SCH (08:56)
[2020-07-22] MEDS: ASPIRIN 81 MG PO SCH (08:56)
[2020-07-22] MEDS: Linaclotide [Linzess] PO SCH (09:05)
--- NOTE | 2020-07-22 09:50 | P.PN ---
Subjective Progress Note Date: 07/22/20 Patient feels somewhat stronger. However generalized weakness does persist. He denied any obvious bleeding. Continues to have vague abdominal discomfort off and on. Objective - Vital Signs Vital signs: Vital Signs Temp 98.9 F 07/21/20 20:00 Pulse 82 07/22/20 08:11 Resp 16 07/22/20 03:50 BP 105/59 07/22/20 03:50 Pulse Ox 98 07/22/20 03:50 Intake & Output 07/21/20 07/22/20 07/22/20 18:59 06:59 18:59 Intake Total 360 0 Output Total 600 Balance 360 -600 0 Weight 65.4 kg Intake: Oral 360 0 Output: Urine 600 Other: Voiding Method Toilet Toilet Urinal # Voids 4 - Constitutional General appearance: Present: no acute distress - EENT Eyes: Present: EOMI ENT: Present: hearing grossly normal, normal oropharynx - Neck Thyroid: bilateral: normal size - Respiratory Respiratory: bilateral: CTA - Cardiovascular Rhythm: regular Heart sounds: normal: S1, S2 - Gastrointestinal General gastrointestinal: Present: normal bowel sounds, soft - Integumentary Integumentary: Present: normal - Neurologic Neurologic: Present: CNII-XII intact - Musculoskeletal Musculoskeletal: Present: generalized weakness, strength equal bilaterally - Psychiatric Psychiatric: Present: A&O x's 3, appropriate affect - Labs CBC & Chem 7: 07/22/20 07:15 07/22/20 07:15 Labs: Abnormal Lab Results - Last 24 Hours (Table) 07/21/20 07/21/20 07/21/20 Range/Units 10:21 10:21 10:21 WBC 16.6 H (3.8-10.6) k/uL RBC 3.15 L (4.30-5.90) m/uL Hgb 8.3 L D (13.0-17.5) gm/dL Hct 27.1 L (39.0-53.0) % MCHC 30.6 L (31.0-37.0) g/dL RDW 16.1 H (11.5-15.5) % Plt Count 936 H (150-450) k/uL Neutrophils # 14.0 H (1.3-7.7) k/uL Monocytes # (0-1.0) k/uL Retic Count 3.2 H (0.5-2.0) % Sodium 131 L (137-145) mmol/L Glucose 100 H (74-99) mg/dL Calcium 8.3 L (8.4-10.2) mg/dL Iron (65-175) ug/dL % Saturation (15.00-50.00) Total Protein 6.2 L (6.3-8.2) g/dL Albumin 2.9 L (3.5-5.0) g/dL 07/21/20 07/22/20 07/22/20 Range/Units 10:21 07:15 07:15 WBC 14.9 H (3.8-10.6) k/uL RBC 3.22 L (4.30-5.90) m/uL Hgb 8.2 L (13.0-17.5) gm/dL Hct 27.6 L (39.0-53.0) % MCHC 29.8 L (31.0-37.0) g/dL RDW 16.2 H (11.5-15.5) % Plt Count 905 H (150-450) k/uL Neutrophils # 11.8 H (1.3-7.7) k/uL Monocytes # 1.1 H (0-1.0) k/uL Retic Count (0.5-2.0) % Sodium 131 L (137-145) mmol/L Glucose (74-99) mg/dL Calcium 8.1 L (8.4-10.2) mg/dL Iron 5 L (65-175) ug/dL % Saturation 1.96 L (15.00-50.00) Total Protein (6.3-8.2) g/dL Albumin (3.5-5.0) g/dL Assessment and Plan (1) Anemia Narrative/Plan: Labs are confirmatory for iron deficiency. Saturation is only in the 1% range. Ferritin is also just about 100 despite the labs being drawn after blood transfusion. - It was discussed with the patient that this confirms most likely severe iron deficiency. Given the clinical picture is the main differential diagnosis would be GI blood loss. Therefore agree with surgical consultation and plan for additional endoscopic workup. Patient is supposed to have EGD on 07/24/20. - IV iron supplementation in the hospital. Start patient on oral iron at discharge. - Patient also had CT of the abdomen and pelvis due to his complains of abdominal pain and weight loss. This shows possibility of some partial small bowel obstruction without obvious mass, adenopathy or fluid. Findings appear to be somewhat nonspecific. Await surgical input. Current Visit: Yes Status: Acute Code(s): D64.9 - ANEMIA, UNSPECIFIED SNOMED Code(s): 650495094 (2) Thrombocytosis Narrative/Plan: Given labs showing severe iron deficiency, and anemia, this is most likely reac tive. Follow platelet counts outpatient with ongoing iron supplementation. Current Visit: Yes Status: Acute Code(s): D47.3 - ESSENTIAL (HEMORRHAGIC) THROMBOCYTHEMIA SNOMED Code(s): 3021190
[2020-07-22] MEDS: SODIUM FERRIC GLUCONAT-SUCROSE 125 MG in SODIUM CHLORIDE 0.9% 100 ML IVPB SCH (11:02)
--- NOTE | 2020-07-22 14:02 | P.PN ---
Subjective Progress Note Date: 07/22/20 CHIEF COMPLAINT: Acute blood loss anemia HISTORY OF PRESENT ILLNESS: The patient is a 65-year-old male presents with acute blood loss anemia, hemoglobin 6.8. He received 1 unit of blood transfusions. Hemoglobin is up between 8.2-8.3. He reports chronic constipation and takes Linzess for symptoms. No bowel movements last night. Last colonoscopy 1 year ago per his recollection. He denies any knowledge of colon cancer in his family. ROS: No reports of nausea and vomiting. No bowel movements. No fevers or chills. No new chest pain. No productive sputum PHYSICAL EXAM: VITAL SIGNS: Reviewed CONSTITUTIONAL: Well developed and in no acute distress. EYES: Conjuctivae without sclera icterus. Extraocular movements grossly intact. Wears glasses. HEAD, EARS, NOSE, THROAT: Moist buccal mucosa. Head is atraumatic, normocephalic. Hears conversational speech. No nasal drainage. NECK: Supple. No thyroidomegaly. RESPIRATORY: Non-labored respirations and equal bilateral excursions. CARDIOVASCULAR: Palpable 2+ radial pulses. ABDOMEN: Soft. No peritonitis. Non tender. MUSCULOSKELETAL: No gross deformity of the lower extremities noted. No clubbing. No cyanosis. SKIN: Good skin turgor. Well perfused. NEUROLOGIC: Cranial nerves II through XII grossly intact. No focal or lateralizing signs. PSYCH: Appropriate affect. Alert and oriented to person, place and time. CLINICAL LABS: White blood cell count elevated 14.9. Hemoglobin is stable from a 0.3-8.2. ASSESSMENT: 1. Acute Blood loss anemia PLAN: 1. Recommend upper and lower endoscopies for evaluation of gastrointestinal bleed Objective - Vital Signs Vital signs: Vital Signs Temp 98.9 F 07/21/20 20:00 Pulse 82 07/22/20 08:11 Resp 16 07/22/20 03:50 BP 105/59 07/22/20 03:50 Pulse Ox 98 07/22/20 03:50 Intake & Output 07/21/20 07/22/20 07/22/20 18:59 06:59 18:59 Intake Total 360 0 Output Total 600 Balance 360 -600 0 Weight 65.4 kg Intake: Oral 360 0 Output: Urine 600 Other: Voiding Method Toilet Toilet Urinal # Voids 4 - Labs CBC & Chem 7: 07/22/20 07:15 10/24/20 07:15 Labs: Abnormal Lab Results - Last 24 Hours (Table) 07/21/20 07/21/20 07/21/20 Range/Units 10:21 10:21 10:21 WBC 16.6 H (3.8-10.6) k/uL RBC 3.15 L (4.30-5.90) m/uL Hgb 8.3 L D (13.0-17.5) gm/dL Hct 27.1 L (39.0-53.0) % MCHC 30.6 L (31.0-37.0) g/dL RDW 16.1 H (11.5-15.5) % Plt Count 936 H (150-450) k/uL Neutrophils # 14.0 H (1.3-7.7) k/uL Monocytes # (0-1.0) k/uL Retic Count 3.2 H (0.5-2.0) % Sodium 131 L (137-145) mmol/L Glucose 100 H (74-99) mg/dL Calcium 8.3 L (8.4-10.2) mg/dL Iron (65-175) ug/dL % Saturation (15.00-50.00) Total Protein 6.2 L (6.3-8.2) g/dL Albumin 2.9 L (3.5-5.0) g/dL 07/21/20 07/22/20 07/22/20 Range/Units 10:21 07:15 07:15 WBC 14.9 H (3.8-10.6) k/uL RBC 3.22 L (4.30-5.90) m/uL Hgb 8.2 L (13.0-17.5) gm/dL Hct 27.6 L (39.0-53.0) % MCHC 29.8 L (31.0-37.0) g/dL RDW 16.2 H (11.5-15.5) % Plt Count 905 H (150-450) k/uL Neutrophils # 11.8 H (1.3-7.7) k/uL Monocytes # 1.1 H (0-1.0) k/uL Retic Count (0.5-2.0) % Sodium 131 L (137-145) mmol/L Glucose (74-99) mg/dL Calcium 8.1 L (8.4-10.2) mg/dL Iron 5 L (65-175) ug/dL % Saturation 1.96 L (15.00-50.00) Total Protein (6.3-8.2) g/dL Albumin (3.5-5.0) g/dL
[2020-07-22] MEDS: SODIUM CHLORIDE 0.9% 1,000 ML IV SCH (17:03)
--- NOTE | 2020-07-22 18:27 | PN ---
PROGRESS NOTE DATE OF SERVICE: 07/22/2020 I am covering for Dr. Borden. This 65-year-old gentleman admitted with significant anemia is being closely monitored. Surgery is planning possible endoscopies on Friday. The CT scan of the chest, abdomen and pelvis showed multiple mildly dilated mid to distal small bowel loops, considering low-grade partial small-bowel obstruction and other chronic findings also. Hemoglobin is currently at 8.2. No active bleeding is noted. PAST MEDICAL HISTORY: Reviewed. REVIEW OF SYSTEMS: CARDIOVASCULAR SYSTEM: No angina or palpitations. RESPIRATIONS as mentioned earlier. GI: As mentioned earlier. : No dysuria. NERVOUS SYSTEM: No focal deficits. CURRENT MEDICATIONS: Reviewed and include: 1. Tylenol. 2. [place]. 3. Ventolin. 4. Xanax. 5. Aspirin. 6. Lofibra. 7. Dilaudid. 9. Protonix. 10.Doses reviewed. PHYSICAL EXAMINATION: The patient is alert and oriented times three. Pulse 103. Blood pressure 92/62, respirations 17, temperature 97.8, pulse ox 98% on 2 L. HEENT: Conjunctivae normal. NECK: No JVD. CARDIOVASCULAR: S1, S2 muffled. RESPIRATORY: Breath sounds diminished in the bases. No rhonchi. No crackles. ABDOMEN: Soft. Mild diffuse distention. Nontender. No mass palpable. LEGS are no edema. No swelling. NERVOUS SYSTEM: No focal deficits. LABS: WBC 14.9, hemoglobin is 8.2. ASSESSMENT: 1. Severe normocytic anemia for evaluation, rule out gastrointestinal bleed status post blood transfusion. 2. Increased WBC, possibly reactive. 3. Status post blood transfusion. 4. Increased platelets. 5. Possible partial small-bowel obstruction. 6. Hyponatremia. 7. History of chronic obstructive pulmonary disease. 8. Gastroesophageal reflux disease. 9. Degenerative joint disease. 10.History of back surgery. 11.History of appendectomy. 12.History of cervical surgery. 13.Remote history of nicotine dependence. RECOMMENDATIONS AND DISCUSSION: I recommend to continue current medications, management and symptomatic treatment. Otherwise endoscopies per surgery. Dr. Burgess's input appreciated. White count is elevated. The exact etiology undetermined. I would recommend a course of empiric antibiotics also at this time. Otherwise, prognosis guarded. Further recommendations to follow. MMODL / IJN: [id number] / XU
[2020-07-23] MEDS: SODIUM CHLORIDE 0.9% 1,000 ML IV SCH (06:16)
[2020-07-23 06:42] LABS: Anisocytosis Slight; Basophils % (A) 0 %; Eosinophils # (A) 0.2 k/uL (0-0.7); Eosinophils % (A) 1 %; HCT 26.2 % (39.0-53.0); Hypochromasia Marked; Lymphocytes # (A) 1.3 k/uL (1.0-4.8); Lymphocytes % (A) 12 %; MCH 26.3 pg (25.0-35.0); MCHC 30.6 g/dL (31.0-37.0); MCV 85.9 fL (80.0-100.0); Mean Platelet Volume 6.3; Monocytes # (A) 0.5 k/uL (0-1.0); Monocytes % (A) 5 %; Neutrophils % (A) 80 %; Platelet Count 876 k/uL (150-450); Poikilocytosis Slight; RBC 3.05 m/uL (4.30-5.90); RDW 16.3 % (11.5-15.5); WBC 11.2 k/uL (3.8-10.6)
[2020-07-23 06:52] LABS: African American GFR (CKD) >90 (>60 ml/min/1.73 sqM); Anion Gap 4 mmol/L; Blood Urea Nitrogen 11 mg/dL (9-20); Calcium 7.9 mg/dL (8.4-10.2); Carbon Dioxide 27 mmol/L (22-30); Chloride 102 mmol/L (98-107); Glucose 99 mg/dL (74-99); Non-African American GFR(CKD) >90 (>60 ml/min/1.73 sqM); Potassium 4.6 mmol/L (3.5-5.1); Sodium 133 mmol/L (137-145)
[2020-07-23] MEDS: IPRATROPIUM-ALBUTEROL 3 ML NEB INHALATION SCH ×3 (07:27→19:23)
[2020-07-23] MEDS ORDERED: PEG 3350-NA SULF,BICARB,CL/KCL 4,000 ML BOTTLE PO ONE (08:00)
[2020-07-23] MEDS: LISINOPRIL-HCTZ 20-12.5 MG 1 EACH TAB PO SCH (08:41)
[2020-07-23] MEDS: Linaclotide [Linzess] PO SCH (08:41)
[2020-07-23] MEDS: FENOFIBRATE 160 MG TAB PO SCH (08:43)
[2020-07-23] MEDS: ASPIRIN 81 MG PO SCH (08:43)
[2020-07-23] MEDS: PANTOPRAZOLE 40 MG/10 ML VIAL IVP SCH (08:43)
[2020-07-23] MEDS: GABAPENTIN 300 MG CAP PO SCH ×3 (08:43→21:28)
[2020-07-23] MEDS: SODIUM FERRIC GLUCONAT-SUCROSE 125 MG in SODIUM CHLORIDE 0.9% 100 ML IVPB SCH (10:14)
--- NOTE | 2020-07-23 15:32 | PN ---
PROGRESS NOTE DATE OF SERVICE: 07/23/2020. HISTORY: This 65-year-old gentleman who was admitted with severe normocytic anemia with possible gastrointestinal bleed is scheduled for endoscopic surgery tomorrow. No chest pain. No palpitations. No fever. The patient is also getting IV Ancef. Abdominal CT scan showed possible partial small-bowel obstruction to be considered. PAST MEDICAL HISTORY: Reviewed. PHYSICAL EXAMINATION: The patient is alert, oriented x3. Pulse 98, blood pressure 100/60, respiration 18, temperature 97.8, pulse ox 98% on 2 L HEENT: Conjunctivae normal. NECK: Supple. LUNGS: Breath sounds diminished at the bases. No rhonchi no crackles. ABDOMEN: Soft, nontender. Mild diffuse distention. LEGS: No edema. No swelling. LABS: WBC 7.2, hemoglobin is 8, sodium is 133. ASSESSMENT: 1. Severe normocytic anemia for evaluation possibly acute on chronic gastrointestinal blood loss anemia status post blood transfusion, for endoscopies, upper and lower. 2. Increased WBC possibly reactive. 3. Status post blood transfusion. 4. Increased platelets. 5. Possible partial small-bowel obstruction. 6. Hyponatremia. 7. History of chronic obstructive pulmonary disease. 8. Gastroesophageal reflux disease. 9. Degenerative joint disease. 10.History of back surgery. 11.History of appendectomy. 12.History of cervical surgery. 13.Remote history of nicotine dependence. RECOMMENDATIONS AND DISCUSSION: Recommend to continue current management and symptomatic treatment. CT scans, CT abdomen and pelvis noted. Closely follow with surgery. Possible endoscopies. Repeat hemoglobin. Recommend close followup with Dr. Borden in the outpatient setting after discharge. MMODL / IJN: [id number] /
--- NOTE | 2020-07-23 15:36 | P.PN ---
Subjective Progress Note Date: 07/23/20 CHIEF COMPLAINT: Acute blood loss anemia HISTORY OF PRESENT ILLNESS: The patient is a 65-year-old male presents with acute blood loss anemia, hemoglobin 6.8. He received 1 unit of blood transfusion. He is tolerating his bowel prep. He is on the commode and having bowel movements. ROS: No reports of nausea and vomiting. No fevers or chills. No new chest pain. No productive sputum PHYSICAL EXAM: VITAL SIGNS: Reviewed CONSTITUTIONAL: Well developed and in no acute distress. EYES: Conjuctivae without sclera icterus. Extraocular movements grossly intact. Wears glasses. HEAD, EARS, NOSE, THROAT: Moist buccal mucosa. Head is atraumatic, normocephalic. Hears conversational speech. No nasal drainage. NECK: Supple. No thyroidomegaly. RESPIRATORY: Non-labored respirations and equal bilateral excursions. CARDIOVASCULAR: Regular rate and rhythm. ABDOMEN: Soft. No peritonitis. Non tender. MUSCULOSKELETAL: No gross deformity of the lower extremities noted. SKIN: Good skin turgor. Well perfused. NEUROLOGIC: Cranial nerves II through XII grossly intact. No focal or lateralizing signs. PSYCH: Appropriate affect. Alert and oriented to person, place and time. CLINICAL LABS: White blood cell count elevated 14.9 down to 11.2. Hemoglobin is 8.2 to 8.0 ASSESSMENT: 1. Acute Blood loss anemia PLAN: 1. Continue bowel prep 2. Lower scope for tomorrow. Objective - Vital Signs Vital signs: Vital Signs Temp 97.8 F 07/23/20 12:00 Pulse 98 07/23/20 12:00 Resp 18 07/23/20 12:00 BP 104/63 07/23/20 12:00 Pulse Ox 96 07/23/20 12:00 Intake & Output 07/22/20 07/23/20 07/23/20 18:59 06:59 18:59 Intake Total 118 250 480 Output Total 400 650 300 Balance -282 -400 180 Weight 66 kg Intake: Oral 118 250 480 Output: Urine 400 650 300 Other: Voiding Method Toilet Toilet Urinal Urinal Urinal # Voids 1 1 # Bowel Movements 1 - Labs CBC & Chem 7: 07/23/20 06:09 07/23/20 06:09 Labs: Abnormal Lab Results - Last 24 Hours (Table) 07/23/20 07/23/20 Range/Units 06:09 06:09 WBC 11.2 H (3.8-10.6) k/uL RBC 3.05 L (4.30-5.90) m/uL Hgb 8.0 L (13.0-17.5) gm/dL Hct 26.2 L (39.0-53.0) % MCHC 30.6 L (31.0-37.0) g/dL RDW 16.3 H (11.5-15.5) % Plt Count 876 H (150-450) k/uL Neutrophils # 9.0 H (1.3-7.7) k/uL Sodium 133 L (137-145) mmol/L Calcium 7.9 L (8.4-10.2) mg/dL Microbiology - Last 24 Hours (Table) 07/22/20 22:00 Urine Culture - Preliminary Urine,Voided
[2020-07-24] MEDS: SODIUM CHLORIDE 0.9% 1,000 ML IV SCH ×2 (05:27→21:23)
[2020-07-24] MEDS: IPRATROPIUM-ALBUTEROL 3 ML NEB INHALATION SCH ×3 (08:00→20:07)
[2020-07-24] MEDS: PANTOPRAZOLE 40 MG/10 ML VIAL IVP SCH (08:43)
--- NOTE | 2020-07-24 08:44 | P.PN ---
Subjective This is a pleasant 65 years old male with multiple medical problems was admitted for severe iron deficiency anemia status post blood transfusion. GI bleed is suspected. CT of the chest abdomen and pelvis showing emphysema with no source for patient's symptoms. patient is followed closely by surgery and hematology team's. Patient this morning is lying comfortably in bed. due to dyspnea or abdominal pain or nausea vomiting. No diarrhea. However he still feels generally weak and tired. He has a stable hemoglobin yesterday at 8.0. Repeat hemoglobin this morning is pending. Patient is been evaluated by GI team for possible colonoscopy this morning. Physical therapist evaluation pending CONSTITUTIONAL: No fever, no malaise, no fatigue. HEENT: No recent visual problems or hearing problems. Denied any sore throat. CARDIOVASCULAR: No orthopnea, PND, no palpitations, no syncope. PULMONARY: No shortness of breath, no cough, no hemoptysis. GASTROINTESTINAL: No diarrhea, no nausea, no vomiting, no abdominal pain. Normoactive bowel sounds. Active Medications Generic Name Dose Route Start Last Admin Trade Name Freq PRN Reason Stop Dose Admin Acetaminophen 500 mg 07/21/20 14:47 Acetaminophen Tab 500 Mg Tab PO Q6HR PRN Fever and/ or Pain Hydrocodone Bitart/Acetaminophen 1 each 07/21/20 14:47 Hydrocodone/Apap 5-325mg 1 Each Tab PO Q6HR PRN Pain Albuterol Sulfate 2.5 mg 07/20/20 17:20 Albuterol Nebulized 2.5 Mg/3 Ml INHALATION RT-QID PRN Shortness Of Breath Albuterol/Ipratropium 3 ml 07/20/20 20:00 07/24/20 08:00 Ipratropium-Albuterol 3 Ml Neb INHALATION 3 ml RT-TID [facility] Administration Alprazolam 0.25 mg 07/21/20 14:47 Alprazolam 0.25 Mg Tab PO TID PRN Anxiety Aspirin 81 mg 07/21/20 09:00 07/23/20 08:43 Aspirin 81 Mg PO 81 mg DAILY [facility] Administration Fenofibrate 160 mg 07/21/20 09:00 07/23/20 08:43 Fenofibrate 160 Mg Tab PO 160 mg DAILY [facility] Administration Gabapentin 300 mg 07/20/20 22:00 07/23/20 21:28 Gabapentin 300 Mg Cap PO 300 mg TID YOL[facility] Administration Lisinopril/HCTZ 1 each 07/21/20 09:00 07/23/20 08:41 Lisinopril-Hctz 20-12.5 Mg 1 Each Tab PO Not Given DAILY [facility] Hydromorphone HCl 0.5 mg 07/21/20 14:47 Hydromorphone 0.5 Mg/0.5 Ml Syringe IVP Q6HR PRN Severe Pain Sodium Chloride 1,000 mls @ 50 mls/hr 07/20/20 18:15 07/24/20 05:27 Saline 0.9% IV Not Given .Q20H [facility] Ferric Sodium Gluconate 125 mg 110 mls @ 100 mls/hr 07/22/20 10:15 07/23/20 10:14 / Sodium Chloride IVPB 07/24/20 10:05 100 mls/hr DAILY [facility] Administration Ceftriaxone Sodium 1 gm/ 50 mls @ 100 mls/hr 07/22/20 17:30 07/23/20 08:42 Sodium Chloride IVPB 100 mls/hr Q24HR [facility] Administration Linaclotide [Linzess 290 mcg 07/21/20 09:00 07/23/20 08:41 ] PO Not Given DAILY [facility] Pantoprazole Sodium 40 mg 07/21/20 14:15 07/23/20 08:43 Pantoprazole 40 Mg/10 Ml Vial IVP 40 mg DAILY YOL[facility]DA Administration Objective - Vital Signs Vital signs: Vital Signs Temp 98.0 F 07/23/20 20:00 Pulse 88 07/24/20 08:11 Resp 17 07/24/20 04:00 BP 100/59 07/24/20 04:00 Pulse Ox 96 07/24/20 08:00 Intake & Output 07/23/20 07/24/20 07/24/20 18:59 06:59 18:59 Intake Total 1080 Output Total 300 Balance 780 Weight 65.7 kg Intake: Oral 1080 Output: Urine 300 Other: Voiding Method Urinal Urinal # Voids 1 # Bowel Movements 3 1 - Exam -GENERAL: The patient is alert and oriented x3, not in any acute distress. paleerus. No conjunctival pallor. Normocephalic, atraumatic. No pharyngeal erythema. No thyromegaly. CARDIOVASCULAR: S1 and S2 present. No murmurs, rubs, or gallops. PULMONARY: Chest is clear to auscultation, no wheezing or crackles. ABDOMEN: Soft, nontender, nondistended, normoactive bowel sounds. No palpable organomegaly. MUSCULOSKELETAL: No joint swelling or deformity. EXTREMITIES: No cyanosis, clubbing, or pedal edema. NEUROLOGICAL: Gross neurological examination did not reveal any focal deficits. SKIN: No rashes. no petechiae. - Labs CBC & Chem 7: 07/23/20 06:09 07/23/20 06:09 Labs: Microbiology - Last 24 Hours (Table) 07/22/20 18:09 Blood Culture - Preliminary Blood No Growth after 24 hours 07/22/20 22:00 Urine Culture - Preliminary Urine,Voided Assessment and Plan Assessment: Severe iron deficiency anemia, status post blood transfusion Rule out GI bleed Emphysema Reactive leukocytosis and thrombocytosis Gastroesophageal reflux disease Degenerative joint disease Mild hyponatremia Plan: This is a pleasant 65 years old male who presents with severe anemia. Hematology and surgery service on team. Currently he is on aspirin but no subcutaneous heparin. Continue with Protonix Rule out GI bleed by surgery team Labs and medication were reviewed.. Continue same treatment. Continue with symptomatic treatment. Resume home medication. Monitor lytes and vitals. DVT and GI prophylaxis. Further recommendationsas per clinical course of the patient DVT prophylaxis: Subcutaneous heparin in view of possible gi bleed GI prophylaxis: Protonix PT/OT: Pending Prognosis is guarded
[2020-07-24 08:45] LABS: African American GFR (CKD) >90 (>60 ml/min/1.73 sqM); Anion Gap 5 mmol/L; Blood Urea Nitrogen 8 mg/dL (9-20); Calcium 8.2 mg/dL (8.4-10.2); Carbon Dioxide 27 mmol/L (22-30); Chloride 102 mmol/L (98-107); Glucose 86 mg/dL (74-99); Non-African American GFR(CKD) >90 (>60 ml/min/1.73 sqM); Potassium 4.6 mmol/L (3.5-5.1); Sodium 134 mmol/L (137-145)
[2020-07-24 08:46] LABS: Anisocytosis Slight; Basophils # (A) 0.1 k/uL (0-0.2); Basophils % (A) 1 %; Eosinophils # (A) 0.3 k/uL (0-0.7); Eosinophils % (A) 5 %; HCT 27.1 % (39.0-53.0); HGB 8.2 gm/dL (13.0-17.5); Hypochromasia Marked; Lymphocytes # (A) 1.4 k/uL (1.0-4.8); Lymphocytes % (A) 23 %; MCH 25.8 pg (25.0-35.0); MCHC 30.2 g/dL (31.0-37.0); MCV 85.7 fL (80.0-100.0); Mean Platelet Volume 6.2; Monocytes # (A) 0.5 k/uL (0-1.0); Monocytes % (A) 8 %; Neutrophils # (A) 3.4 k/uL (1.3-7.7); Neutrophils % (A) 59 %; Platelet Count 923 k/uL (150-450); Poikilocytosis Slight; RBC 3.17 m/uL (4.30-5.90); RDW 16.3 % (11.5-15.5); WBC 5.8 k/uL (3.8-10.6)
[2020-07-24] MEDS: SODIUM FERRIC GLUCONAT-SUCROSE 125 MG in SODIUM CHLORIDE 0.9% 100 ML IVPB SCH (10:03)
[2020-07-24] MEDS: GABAPENTIN 300 MG CAP PO SCH ×3 (11:18→21:23)
[2020-07-24] MEDS: Linaclotide [Linzess] PO SCH (11:19)
[2020-07-24] MEDS ORDERED: IV FLUID CONTINUATION 100 ML IV ONE (12:52)
[2020-07-24] MEDS ORDERED: PROPOFOL 10 MG/ML 20 ML VIAL IV ONE (12:59)
--- NOTE | 2020-07-24 13:24 | P.OP ---
Date of Procedure: 07/24/20 Preoperative Diagnosis: Anemia GI bleed Postoperative Diagnosis: Antral gastritis Hiatal hernia Mild esophagitis Procedure(s) Performed: EGD Colonoscopy Anesthesia: MAC Surgeon: Dallas Delvalle Pathology: other (Antrum, esophagus) Condition: stable Disposition: PACU Description of Procedure: The patient's placed on the endoscopy table in the lateral position. He received IV sedation. The gastro-/oropharynx and passed in the esophagus and the stomach. Scope then placed through the pylorus. The first and second portion of the duodenum appeared normal. Scope was then brought back the antrum this was mildly inflamed. A biopsies or. Scope was then retroflexed and remainder of the stomach appeared normal. There was a moderate size hiatal hernia. The GE junction was at 40 cm. The distal esophagus was mildly inflamed a biopsies performed. The proximal esophagus appeared normal. Scope was brought patient. Next digital rectal exam was performed. This revealed no abnormalities. Flexible colonoscope was then placed patient anus and passed throughout the entire colon. In the cecum the ileocecal valve appeared to be inflamed. A biopsy was performed. The area is photographed. Scope was withdrawn remainder the ascending colon appeared normal. Hepatic flexure was visualized this appeared normal. The transverse, descending and sigmoid colon appeared normal. The scope was then brought back the rectum this appeared normal. Scope withdrawn from the patient.
[2020-07-24] MEDS: ASPIRIN 81 MG PO SCH (14:13)
[2020-07-24] MEDS: LISINOPRIL-HCTZ 20-12.5 MG 1 EACH TAB PO SCH (14:14)
[2020-07-24] MEDS: FENOFIBRATE 160 MG TAB PO SCH (14:14)
[2020-07-24] MEDS: IOPAMIDOL CONTRAST (ORAL USE) VIAL PO PRN ×2 (16:09→17:22)
--- NOTE | 2020-07-24 19:12 | CT ---
EXAMINATION TYPE: CT abdomen pelvis w con DATE OF EXAM: 07/24/2020 COMPARISON: 07/21/2020 HISTORY: Right upper quadrant tenderness, weight loss, unexplained anemia. CT DLP: 767.7 mGycm Automated exposure control for dose reduction was used. CONTRAST: Performed with IV Contrast, patient injected with 100 mL of Isovue 300. There is oral contrast. FINDINGS: Lung bases are clear of consolidation. There is no pleural effusion. Heart size is normal. There is n o pericardial effusion. Liver spleen pancreas gallbladder stomach appear normal. Bile ducts are not dilated. There is no adrenal mass. Kidneys show satisfactory contrast opacification. There is no hydronephrosi s. Delayed images show normal renal excretion. There is no retroperitoneal adenopathy. Abdominal aort a is atheromatous. Ureters are not dilated. Bladder distends smoothly. There is no inguinal hernia. There is no free fluid in the pelvis. There is wall thickening of the distal ileum measuring up to 9 mm in thickness. Appendix is not seen with certainty. There is no sign of thickened appendix. Small bowel is not dilated. There is no evidence of free air. There is no ascites. There is no mesenteric edema. There is multile gwendolyn spondylotic changes in the lumbar spine. There is disc space narrowing with spur formation. There is no compression fracture. Bony pelvis is intact. IMPRESSION: Distal ileum wall thickening that could relate to inflammatory bowel disease. There is clearing of th e small bowel obstructive pattern and dilated loops compared to recent exam.
[2020-07-25 01:38] VITALS: RESP 18
[2020-07-25] MEDS: IPRATROPIUM-ALBUTEROL 3 ML NEB INHALATION SCH ×2 (07:32→11:59)
[2020-07-25 08:05] LABS: Anisocytosis Slight; HGB 7.9 gm/dL (13.0-17.5); Hypochromasia Marked; MCH 25.1 pg (25.0-35.0); MCHC 29.1 g/dL (31.0-37.0); MCV 86.1 fL (80.0-100.0); Mean Platelet Volume 6.1; Platelet Count 910 k/uL (150-450); Poikilocytosis Slight; RBC 3.14 m/uL (4.30-5.90); RDW 16.2 % (11.5-15.5); WBC 6.6 k/uL (3.8-10.6)
[2020-07-25] MEDS: LISINOPRIL-HCTZ 20-12.5 MG 1 EACH TAB PO SCH ×2 (08:25→10:07)
[2020-07-25] MEDS: ASPIRIN 81 MG PO SCH (08:25)
[2020-07-25] MEDS: GABAPENTIN 300 MG CAP PO SCH (08:25)
[2020-07-25] MEDS: FENOFIBRATE 160 MG TAB PO SCH (08:25)
[2020-07-25] MEDS: SODIUM CHLORIDE 0.9% 1,000 ML IV SCH (08:25)
[2020-07-25] MEDS: Linaclotide [Linzess] PO SCH (08:26)
[2020-07-25 08:40] VITALS: TEMP 98.2
[2020-07-25] MEDS ORDERED: CYANOCOBALAMIN 1,000 MCG/ML 1 ML VIAL IM ONE (09:33)
[2020-07-25 10:53] VITALS: BMI 24.0
--- NOTE | 2020-07-25 11:56 | P.PN ---
Subjective Progress Note Date: 07/25/20 CHIEF COMPLAINT: Acute blood loss anemia HISTORY OF PRESENT ILLNESS: Patient is status post EGD and colonoscopy results showed antral gastritis, hiatal hernia and mild esophagitis. Patient denies any abdominal pain. Denies any nausea or vomiting. He reports having bowel movements.Patient did have clear liquid diet this morning. He's afebrile. WBC 6.6 hemoglobin 7.9 Down from 8.2 total iron is 5 Computed tomography scan abdomen and pelvis shows distal ileum wall thickening that could relate to inflammatory bowel disease. There is clearing of small bowel obstructive pattern and dilated loops compared to recent exam. PHYSICAL EXAM: VITAL SIGNS: Reviewed. GENERAL: Well-developed in no acute distress. HEENT: No sclera icterus. Extraocular movements grossly intact. Moist buccal mucosa. Head is atraumatic, normocephalic. ABDOMEN: Soft. Nondistended. Nontender. NEUROLOGIC: Alert and oriented. Cranial nerves II through XII grossly intact. ASSESSMENT: 1. Acute blood loss anemia with possible GI bleed. Source of bleeding may have been due to inflamed ileocecal valve noted on colonoscopy. Biopsy of the area was performed. Patient's EGD showed antral gastritis, hiatal hernia and mild esophagitis 2. Iron deficiency anemia 3. daily NSAID use PLAN: -Avoid NSAID use -Continue Protonix -Patient can be discharge from surgical standpoint. -Patient follow-up with Dr. Delvalle and 1 week Physician [facility] note has been reviewed by physician. Signing provider agrees with the documented findings, assessment, and plan of care. Objective - Vital Signs Vital signs: Vital Signs Temp 98.2 F 07/25/20 08:10 Pulse 93 07/25/20 08:10 Resp 18 07/25/20 08:10 BP 104/63 07/25/20 08:10 Pulse Ox 97 07/25/20 08:10 Intake & Output 07/24/20 07/25/20 07/25/20 18:59 06:59 18:59 Intake Total 650 240 Output Total 350 375 300 Balance 300 -375 -60 Weight 63.6 kg 63.6 kg Intake: IV 50 Intake, IV Titration 600 Amount Sodium Chloride 0.9% 1, 500 000 ml @ 50 mls/hr IV . Q20H [facility] Rx#:[id number] Sodium Ferric Gluconat- 100 Sucrose 125 mg In Sodium Chloride 0.9% 100 ml @ 100 mls/hr IVPB DAILY [facility] Rx#:[id number] Oral 0 240 Output: Urine 350 375 300 Other: Voiding Method Bedside Commode Bedside Commode Urinal Urinal # Voids 1 0 # Bowel Movements 1 - Labs CBC & Chem 7: 07/25/20 07:22 07/24/20 07:37 Labs: Abnormal Lab Results - Last 24 Hours (Table) 07/25/20 Range/Units 07:22 RBC 3.14 L (4.30-5.90) m/uL Hgb 7.9 L (13.0-17.5) gm/dL Hct 27.0 L (39.0-53.0) % MCHC 29.1 L (31.0-37.0) g/dL RDW 16.2 H (11.5-15.5) % Plt Count 910 H (150-450) k/uL Microbiology - Last 24 Hours (Table) 07/22/20 18:09 Blood Culture - Preliminary Blood No Growth after 48 hours 07/22/20 22:00 Urine Culture - Final Urine,Voided
[2020-07-25] MEDS: PANTOPRAZOLE 40 MG/10 ML VIAL IVP SCH (12:43)
--- NOTE | 2020-07-25 12:49 | P.PN ---
Subjective Progress Note Date: 07/25/20 Principal diagnosis: Anemia In f/u today pt doing well, feels better then he has since being admitted. Tolerating Oral intake. Bowels are moving, breathing is stable, no physical complaints, he is receiving a wheeled seated walker which he is very excited about as he feels this is going to allow him to be more ambulatory. Objective - Vital Signs Vital signs: Vital Signs Temp 98.2 F 07/25/20 08:10 Pulse 88 07/25/20 12:07 Resp 18 07/25/20 08:10 BP 104/63 07/25/20 08:10 Pulse Ox 97 07/25/20 08:10 Intake & Output 07/24/20 07/25/20 07/25/20 18:59 06:59 18:59 Intake Total 650 240 Output Total 350 375 300 Balance 300 -375 -60 Weight 63.6 kg 63.6 kg Intake: IV 50 Intake, IV Titration 600 Amount Sodium Chloride 0.9% 1, 500 000 ml @ 50 mls/hr IV . Q20H [facility] Rx#:[id number] Sodium Ferric Gluconat- 100 Sucrose 125 mg In Sodium Chloride 0.9% 100 ml @ 100 mls/hr IVPB DAILY [facility] Rx#:[id number] Oral 0 240 Output: Urine 350 375 300 Other: Voiding Method Bedside Commode Bedside Commode Urinal Urinal # Voids 1 0 # Bowel Movements 1 - Constitutional General appearance: Present: average body habitus, cooperative, no acute distress - EENT Eyes: Present: anicteric sclerae, EOMI, poor dentition ENT: Present: hearing grossly normal - Respiratory Details: respirations even and unlabored - Peripheral edema leg Peripheral Edema: bilateral: None - Integumentary Integumentary: Present: normal turgor, pale - Neurologic Neurologic: Present: CNII-XII intact - Musculoskeletal Musculoskeletal Comment(s): lower extremity strength good, needs assistive device due to back pain - Psychiatric Psychiatric: Present: A&O x's 3, appropriate affect, intact judgment & insight - Labs CBC & Chem 7: 07/25/20 07:22 07/24/20 07:37 Labs: Abnormal Lab Results - Last 24 Hours (Table) 07/25/20 Range/Units 07:22 RBC 3.14 L (4.30-5.90) m/uL Hgb 7.9 L (13.0-17.5) gm/dL Hct 27.0 L (39.0-53.0) % MCHC 29.1 L (31.0-37.0) g/dL RDW 16.2 H (11.5-15.5) % Plt Count 910 H (150-450) k/uL Microbiology - Last 24 Hours (Table) 07/22/20 18:09 Blood Culture - Preliminary Blood No Growth after 48 hours 07/22/20 22:00 Urine Culture - Final Urine,Voided - Imaging and Cardiology CT scan - abdomen: report reviewed CT scan - pelvis: report reviewed Assessment and Plan (1) Iron deficiency anemia Narrative/Plan: Patient received 1 dose of parenteral iron. Patient will continue to be supplemented with parenteral iron in the outpatient setting until adequate stores acquired. Then we'll continue with monitoring and supplementation when necessary. Status post endoscopies with biopsies from the colon, esophagus and the stomach. Nothing in the reports of acute bleeding. CT of the abdomen and pelvis results reviewed. Thickening in the ileum, sona earance of clearance of a small bowel obstruction. Current Visit: Yes Status: Acute Priority: High Code(s): D50.9 - IRON DEFICIENCY ANEMIA, UNSPECIFIED SNOMED Code(s): 52936003 (2) Thrombocytosis Narrative/Plan: Most likely secondary to iron deficiency. We'll continue to monitor in the outpatient setting as patient's iron is replenished. Further workup as needed. No antiplatelet therapy necessary for reactive thrombocytosis Current Visit: Yes Status: Acute Priority: High Code(s): D47.3 - ESSENTIAL (HEMORRHAGIC) THROMBOCYTHEMIA SNOMED Code(s): 4398255 (3) Leukocytosis Current Visit: Yes Status: Resolved Code(s): D72.829 - ELEVATED WHITE BLOOD CELL COUNT, UNSPECIFIED SNOMED Code(s): 893330892
[2020-07-25 13:12] VITALS: BP 120/66; PULSE 77
--- NOTE | 2020-07-25 13:26 | P.CONS ---
History of Present Illness - Reason for Consult Consult date: 07/25/20 wound care - History of Present Illness This is a 65-year-old gentleman who noticed a nonhealing ulcer to his gluteus approximately 2 weeks ago. Patient states that he is gotten in the past however he had something in his house to take care of him. At this time he did not have anything to use to help with it. Patient is complaining of pain to the site Review of Systems Review Of Systems: Constitutional: No fever, no chills, no night sweats. No weight change. No weakness, fatigue or lethargy. No daytime sleepiness. Integumentary:reports wounds, no lesions. No rash or pruritus. No unusual bruising. No change in hair or nails. Past Medical History Past Medical History: COPD, GERD/Reflux, Myocardial Infarction (ME), Osteoa rthritis (OA) Last Myocardial Infarction Date:: UNKNOWN SHOWS ON EKG ,ECHO" PER PATIENT History of Any Multi-Drug Resistant Organisms: None Reported Past Surgical History: Appendectomy, Back Surgery, Tonsillectomy Additional Past Surgical History / Comment(s): CERVICAL SURGERY WITH PLATE, COLONOSCOPY Past Anesthesia/Blood Transfusion Reactions: No Reported Reaction Past Psychological History: No Psychological Hx Reported Smoking Status: Former smoker Past Alcohol Use History: None Reported Additional Past Alcohol Use History / Comment(s): STARTED SMOKING AT AGE 12 QUIT AT AGE 57 SMOKED 1- 3 PPD Past Drug Use History: None Reported - Past Family History Mother Family Medical History: No Reported History Medications and Allergies Home Medications Medication Instructions Recorded Confirmed Type Aspirin 81 mg PO DAILY 07/05/19 07/20/20 History Diclofenac Sodium [Voltaren] 50 mg PO TID PRN 07/05/19 07/20/20 History Gabapentin [Neurontin] 300 mg PO TID 07/05/19 07/20/20 History Ipratropium Nebulized [Atrovent 0.5 mg INHALATION RT-TID 07/05/19 07/20/20 History Nebulized 0.2 MG/ML] Lisinopril-Hctz 20-12.5 mg 1 tab PO DAILY 07/05/19 07/20/20 History [Zestoretic 20-12.5] Omeprazole 20 mg PO DAILY 07/05/19 07/20/20 History Tiotropium 18 Mcg/Puff [Spiriva] 1 cap INHALATION RT-DAILY 07/05/19 07/20/20 History gemfibroziL [Lopid] 600 mg PO DAILY 07/05/19 07/20/20 History Albuterol Nebulized [Ventolin 2.5 mg INHALATION RT-TID 07/20/20 07/20/20 History Nebulized] Albuterol Sulfate [Ventolin HFA] 2 puff INHALATION RT-QID PRN 07/20/20 07/20/20 History Linaclotide [Linzess] 290 mcg PO DAILY 07/20/20 07/20/20 History Allergies Allergy/AdvReac Type Severity Reaction Status Date / Time Krnmrlm-[id number]-[id number] Reductase AdvReac MUSCLE Verified 07/20/20 17:24 Inhibitor PAIN , ELEVATED LIVER ENZYMES Physical Exam Vitals: Vital Signs Temp Pulse Pulse Resp BP Pulse Ox 07/25/20 12:20 77 18 120/66 100 07/25/20 12:07 88 07/25/20 12:00 88 07/25/20 08:10 98.2 F 93 18 104/63 97 07/25/20 07:42 92 07/25/20 07:34 92 07/25/20 04:00 93 18 108/68 97 07/25/20 00:00 92 18 109/67 97 07/24/20 20:19 91 07/24/20 20:09 91 97 07/24/20 20:00 97.6 F 95 20 115/68 97 07/24/20 16:00 92 17 07/24/20 14:19 91 17 102/70 98 Intake and Output 07/24/20 07/25/20 07/25/20 22:59 06:59 14:59 Intake Total 600 480 Output Total 350 375 300 Balance 250 -375 180 Intake: Intake, IV Titration 600 Amount Sodium Chloride 0.9% 1, 500 000 ml @ 50 mls/hr IV . Q20H [facility] Rx#:[id number] Sodium Ferric Gluconat- 100 Sucrose 125 mg In Sodium Chloride 0.9% 100 ml @ 100 mls/hr IVPB DAILY [facility] Rx#:[id number] Oral 0 480 Output: Urine 350 375 300 Other: Voiding Method Bedside Commode Bedside Commode Urinal Urinal # Voids 0 # Bowel Movements 1 Weight 63.6 kg 63.6 kg Physical exam: General Appearance: Alert, cooperative, no distress, appears stated age. Skin: Full thickness nonhealing pressure ulcer Anderson grade 2 to the coccyx. With fat layer exposure. Minimal slough noted within the wound bed. Granulation seen throughout the wound bed. all other Skin color, texture, tugor normal, no rashes or lesions. Neurologic: Alert oriented x3 Results CBC & Chem 7: 07/25/20 07:22 07/24/20 07:37 Labs: Abnormal Lab Results - Last 24 Hours (Table) 07/25/20 Range/Units 07:22 RBC 3.14 L (4.30-5.90) m/uL Hgb 7.9 L (13.0-17.5) gm/dL Hct 27.0 L (39.0-53.0) % MCHC 29.1 L (31.0-37.0) g/dL RDW 16.2 H (11.5-15.5) % Plt Count 910 H (150-450) k/uL Microbiology - Last 24 Hours (Table) 07/22/20 18:09 Blood Culture - Preliminary Blood No Growth after 48 hours 07/22/20 22:00 Urine Culture - Final Urine,Voided Assessment and Plan Plan: Apply zinc barrier cream to the site daily. Utilize air filled cushions. Discussed with patient to call the wound care center as needed. Patient verbalized understanding. Thank you for the consultation any questions please contact the wound care center DNP note has been reviewed and discussed with Dr. Carrasquillo and the impression and plan of care has been directed as dictated.
--- NOTE | 2020-07-25 22:09 | P.DS ---
Providers Date of admission: 07/20/20 15:38 Attending physician: Axel Borden Consults: 07/20/20 17:19 Consult Physician Stat Consulting Provider: Abdulaziz Burgess Consult Reason/Comments: low hgb Do you want consulting provider notified?: Yes Placement Type Exists?: Yes 07/20/20 18:09 Consult Physician Routine Consulting Provider: Dallas Delvalle Consult Reason/Comments: gi bleed Do you want consulting provider notified?: Yes Placement Type Exists?: Yes Primary care physician: [facility] [place] Course: Diagnoses: Acute Distal ileitis, patient is asymptomatic on discharge Severe iron deficiency anemia, status post blood transfusion. Status post EGD: Mild antral gastritis and distal esophagitis. Biopsies taken and pending. Colonoscopy cecoileal area is inflamed Emphysema, chronic hypoxic respiratory failure, patient on 2 L oxygen at night and sometimes at days. Reactive leukocytosis and thrombocytosis Gastroesophageal reflux disease Degenerative joint disease Mild hyponatremia Hospital course: This is a pleasant 65 years old male with multiple medical problems was admitted for severe iron deficiency anemia status post blood transfusion. CT of the chest abdomen and pelvis showing emphysema with distal ileal inflammation. patient is followed closely by surgery and hematology team's. He underwent EGD and colonoscopy with results as above Patient also status post one unit of blood transfusion, hemoglobin was stable on the day of discharge is 7.9. Patient leukocytosis improved with IV antibiotics ceftriaxone and his symptoms improved, on the day of discharge patient denies abdominal pain, no diarrhea, no nausea vomiting and he tolerated his diet well. The patient feels He can go home today. No other complaints Patient also received IV iron, he does not want oral iron upon discharge and prefers to follow up with hematology office for further IV iron therapy. Patient was cleared for discharge by postsurgery and hematology team Problems and management plan were discussed with the patient and he verbalized understanding and acceptance Patient was found stable and can be discharged home however he needs follow-up as an outpatient. Patient was instructed to follow up with PCP within one week and patient agrees. Patient agrees with the appointments made for him with Dr. Burgess on 08/28, Dr. Borden 07/[address] Main on 08/03, and states he wanted only change the date for Dr. Borden appointment Gen: patient is a AAOx3, no distress CVS: S1-S2, RRR, no murmur Lungs: B/L CTA, no wheezing Abdomen: soft, no distention, no tenderness, positive bowel sounds Extremity: no leg edema or induration Time spent more than 35 minutes Patient Condition at Discharge: Stable Plan - Discharge Summary Discharge Rx Participant: Yes New Discharge Prescriptions: No Action Ipratropium Nebulized [Atrovent Nebulized 0.2 MG/ML] 0.5 mg INHALATION RT-TID Tiotropium 18 Mcg/Puff [Spiriva] 1 cap INHALATION RT-DAILY Diclofenac Sodium [Voltaren] 50 mg PO TID PRN PRN Reason: Pain Aspirin 81 mg PO DAILY Omeprazole 20 mg PO DAILY Lisinopril-Hctz 20-12.5 mg [Zestoretic 20-12.5] 1 tab PO DAILY Gabapentin [Neurontin] 300 mg PO TID gemfibroziL [Lopid] 600 mg PO DAILY Albuterol Nebulized [Ventolin Nebulized] 2.5 mg INHALATION RT-TID Albuterol Sulfate [Ventolin HFA] 2 puff INHALATION RT-QID PRN PRN Reason: Shortness Of Breath Linaclotide [Linzess] 290 mcg PO DAILY Discharge Medication List Aspirin 81 mg PO DAILY 07/05/19 [History] Diclofenac Sodium [Voltaren] 50 mg PO TID PRN 07/05/19 [History] Gabapentin [Neurontin] 300 mg PO TID 07/05/19 [History] Ipratropium Nebulized [Atrovent Nebulized 0.2 MG/ML] 0.5 mg INHALATION RT-TID 07/05/19 [History] Lisinopril-Hctz 20-12.5 mg [Zestoretic 20-12.5] 1 tab PO DAILY 07/05/19 [History] Omeprazole 20 mg PO DAILY 07/05/19 [History] Tiotropium 18 Mcg/Puff [Spiriva] 1 cap INHALATION RT-DAILY 07/05/19 [History] gemfibroziL [Lopid] 600 mg PO DAILY 07/05/19 [History] Albuterol Nebulized [Ventolin Nebulized] 2.5 mg INHALATION RT-TID 07/20/20 [History] Albuterol Sulfate [Ventolin HFA] 2 puff INHALATION RT-QID PRN 07/20/20 [History] Linaclotide [Linzess] 290 mcg PO DAILY 07/20/20 [History] Follow up Appointment(s)/Referral(s): Maribel Talley NPC [Nurse Practitioner] - 08/01/20 9:30 am (THIS APPOINTMENT IS AT THE [address] [place] [address] LOCATION [facility] ([facility] WILL CALL PT DAY BEFORE FOR APPT CLARIFICATION) Axel Borden MD [Primary Care Provider] - 07/31/20 2:45 pm [facility], [NON-STAFF] - Dallas Delvalle MD [STAFF PHYSICIAN] - 08/03/20 2:00 pm Patient Instructions/Handouts: Gastrointestinal Bleeding (DC), Diet for Stomach Ulcers and Gastritis (ED) Activity/Diet/Wound Care/Special Instructions: Patient requires a walker at discharge secondary to unsteady gait. Encourage safe ambulation frequently Recommended diet rich in protein as well as vegetables, recommend variety. GI BLEED 1. Take all new medication as directed. 2. Avoid foods that can be irritating to your intestines (See dietary teaching). 3. Avoid motrin (ibuprofen) and aleve (naproxen). These medications can increase your risk of internal bleeding. Tylenol (acetaminophen) is safe to take as long as you do not have any liver disease. 4. Avoid drinking alcohol and smoking, these can also irritate your intestines and increase risk of internal bleeding. 5. Increase activity gradually, do not overexert yourself. Your blood count is lower and your body will need time to recover. Discharge Disposition: HOME WITH HOME HEALTH SERVICES
[2020-07-26] MEDS ORDERED: CYANOCOBALAMIN 500 MCG TAB PO SCH (09:00)
== END 2020-07-25 16:13 | disposition home health service (06) | DRG 392 ==
LOC: 3SCARD 15:38
PROVIDERS: ADMIT Family Medicine; ATTEND Family Medicine
PROC: 30233N1 Transfusion of Nonautologous Red Blood Cells into Peripheral Vein, Percutaneous Approach (ICD-10-PCS; 2020-07-20)
PROC: 0DB78ZX Excision of Stomach, Pylorus, Via Natural or Artificial Opening Endoscopic, Diagnostic (ICD-10-PCS; principal; 2020-07-24 12:40)
PROC: 0DBH8ZX Excision of Cecum, Via Natural or Artificial Opening Endoscopic, Diagnostic (ICD-10-PCS; principal; 2020-07-24 12:40)
PROC: 0DBB8ZX Excision of Ileum, Via Natural or Artificial Opening Endoscopic, Diagnostic (ICD-10-PCS; principal; 2020-07-24 12:40)
PROC: 0DB58ZX Excision of Esophagus, Via Natural or Artificial Opening Endoscopic, Diagnostic (ICD-10-PCS; principal; 2020-07-24 12:40)
DX: K58.1 Irritable bowel syndrome with constipation (principal); D62 Acute posthemorrhagic anemia; E87.1 Hypo-osmolality and hyponatremia; J96.11 Chronic respiratory failure with hypoxia; D47.3 Essential (hemorrhagic) thrombocythemia; D50.9 Iron deficiency anemia, unspecified; D53.9 Nutritional anemia, unspecified; D72.828 Other elevated white blood cell count; G62.9 Polyneuropathy, unspecified; I25.2 Old myocardial infarction; J43.9 Emphysema, unspecified; K21.00 Gastro-esophageal reflux disease with esophagitis, without bleeding; K29.70 Gastritis, unspecified, without bleeding; K44.9 Diaphragmatic hernia without obstruction or gangrene; L89.152 Pressure ulcer of sacral region, stage 2; M51.36 Other intervertebral disc degeneration, lumbar region; M19.90 Unspecified osteoarthritis, unspecified site; Z79.82 Long term (current) use of aspirin; Z79.899 Other long term (current) drug therapy; Z87.891 Personal history of nicotine dependence; Z90.49 Acquired absence of other specified parts of digestive tract; Z99.81 Dependence on supplemental oxygen; Z90.89 Acquired absence of other organs; Z88.8 Allergy status to other drugs, medicaments and biological substances; Z79.1 Long term (current) use of non-steroidal anti-inflammatories (NSAID)
CPT/HCPCS: 43239; 71046; 71250; 74176; 74177; 80048; 80053; 81003; 82607; 82728; 82746; 83540; 83550; 83615; 83921; 85025; 85027; 85045; 85610; 86850; 86900; 86901; 86920; 87040; 87086; 88305; 88342; 94640; 94760

== ENCOUNTER → 2020-10-16 | Outpatient (CLI) | payer MEDICARE, OTHER ==
[2020-10-16 12:51] LABS: African American GFR (CKD) >90 (>60 ml/min/1.73 sqM); Blood Urea Nitrogen 5 mg/dL (9-20); Non-African American GFR(CKD) >90 (>60 ml/min/1.73 sqM)
--- NOTE | 2020-10-16 14:44 | CT ---
EXAMINATION TYPE: CT abdomen pelvis w con DATE OF EXAM: 10/16/2020 COMPARISON: CT abdomen and pelvis July 24, 2020 HISTORY: Colon polyps, constipation CT DLP: 516.2 mGycm, Automated Exposure Control for Dose Reduction was Utilized. CONTRAST: CT scan of the abdomen and pelvis is performed with oral and with IV Contrast, patient injected with 100 mL of Isovue 300. FINDINGS: LUNG BASES: Mild to moderate underlying emphysematous change and chronic parenchymal scarring noted b ilaterally. LIVER/GB: No significant abnormality is appreciated. PANCREAS: No significant abnormality is seen. SPLEEN: No significant abnormality is seen. ADRENALS: Nonspecific Thickening to the left adrenal gland unchanged from prior study axial image 18 for reference. KIDNEYS: Symmetric cortical medullary uptake and excretion from both kidneys without concerning renal mass or hydronephrosis seen bilaterally. Mildly distended bladder. BOWEL: Oral contrast does not reach ileal loops in the right abdomen making evaluation of distal keyla l suboptimal. No suspicious small or large bowel dilatation. Moderate amount of fecal prominence in t he right and transverse colon. Some redundant sigmoid colon. Poor distention of left and sigmoid colo n. No obvious obstructing mass. Persistent moderate to severe wall thickening and mild mucosal inflam mation involving the terminal ileum coronal image 36 prominent than prior study. No surrounding fat s tranding or inflammatory change. Small bowel feces sign with abnormal mucosal enhancement and wall th ickening proximal to this noted. Some small bowel loops in the left lower quadrant are slightly promi nent with air-fluid levels. PROSTATE/SEMINAL VESICLES: Mildly Enlarged prostate gland consistent with BPH more prominent from cesar or. LYMPH NODES: No greater than 1cm abdominal or pelvic lymph nodes are appreciated. OSSEOUS STRUCTURES: Underlying dextroconvex scoliosis. Severe multilevel spurring and disc space narr owing along with endplate sclerosis L1-L2 through the L4-L5 levels. Sacralized right L5 segment. OTHER: No significant additional abnormality is seen. IMPRESSION: 1. Overall nonspecific but favor nonobstructive bowel gas pattern. Proximal to mid moderate to severe colonic fecal stasis is present. There is persistent abnormal appearance to the terminal ileum more prominent from prior. Consider infectious or inflammatory etiology. Crohn's disease needs to be exclu ded. Correlate clinically.
== END | disposition home or self-care (01) ==
LOC: RADCTMAIN 12:00
PROVIDERS: ATTEND Surgery
DX: K59.00 Constipation, unspecified (principal)
CPT/HCPCS: 82565; 84520; 74177; 36415; Q9967

== ENCOUNTER → 2020-12-13 | Outpatient (CLI) | payer MEDICARE, OTHER ==
[2020-12-13 12:38] LABS: African American GFR (CKD) >90 (>60 ml/min/1.73 sqM); Blood Urea Nitrogen 15 mg/dL (9-20); Non-African American GFR(CKD) >90 (>60 ml/min/1.73 sqM)
--- NOTE | 2020-12-13 14:38 | CT ---
EXAMINATION TYPE: CT abdomen pelvis w con DATE OF EXAM: 12/13/2020 COMPARISON: CT abdomen and pelvis October 16, 2020 and older CTs HISTORY: Crohn's disease, rectal bleeding. CT DLP: 487.5 mGycm, Automated Exposure Control for Dose Reduction was Utilized. CONTRAST: CT scan of the abdomen and pelvis is performed with oral and with IV Contrast, patient injected with 100 mL of Isovue M300. FINDINGS: LUNG BASES: Mild underlying emphysematous change and chronic parenchymal scarring noted bilaterally. LIVER/GB: Gallbladder somewhat contracted on current study. PANCREAS: No significant abnormality is seen. SPLEEN: Stable small splenule axial image 26. ADRENALS: Nonspecific Thickening to the left adrenal gland unchanged from prior study axial image 21 for reference. Favor benign lipid rich hyperplasia. KIDNEYS: Symmetric cortical medullary uptake and excretion from both kidneys without concerning renal mass or hydronephrosis seen bilaterally. Mild to moderately distended bladder. BOWEL: Oral contrast does not reach the terminal ileum making evaluation of distal bowel suboptimal. No suspicious small or large bowel dilatation. Mild amount of fecal prominence in the right colon on current study improved from prior. Some redundant sigmoid colon. Poor distention of sigmoid colon sim ilar to prior. Mild residual inflammatory change involving terminal ileum on image 29 significant imp rovement from prior. Small bowel feces sign noted proximal to this in the distal ileal loops. Improv ed fluid prominent small bowel loops in the left lower quadrant and pelvis. No new areas of abnormal wall thickening and/or eccentric wall enhancement identified. . PROSTATE/SEMINAL VESICLES: Mildly Enlarged prostate gland consistent with BPH unchanged from prior. LYMPH NODES: No new greater than 1cm abdominal or pelvic lymph nodes are appreciated. OSSEOUS STRUCTURES: Underlying dextroconvex scoliosis redemonstrated. Severe multilevel spurring and disc space narrowing along with endplate sclerosis L1-L2 through the L4-L5 levels redemonstrated. Sac ralized right L5 segment redemonstrated. OTHER: Ectatic abdominal aorta. Severe calcified plaque in the iliac branch vessels redemonstrated. IMPRESSION: 1. Persistent Overall nonspecific but favor nonobstructive bowel gas pattern. Proximal colonic fecal stasis improved from prior. Nearly completely resolved inflammatory change at level of the terminal i leum. No new areas of small or large bowel inflammation clearly seen.
== END ==
LOC: RADCTMAIN 11:47
PROVIDERS: ATTEND Surgery
DX: K56.41 Fecal impaction (principal)
CPT/HCPCS: 82565; 84520; 74177; 36415; Q9967 ×2

== ENCOUNTER → 2021-11-05 | Outpatient (CLI) | payer MEDICARE, OTHER ==
--- NOTE | 2021-11-05 11:10 | MR ---
EXAMINATION TYPE: MR brain wo/w con DATE OF EXAM: 11/05/2021 COMPARISON: None HISTORY: dementia, memory loss, cva TECHNIQUE: Multiplanar, multisequence images of the brain and brainstem is performed without and with IV contras t, utilizing 6 mL intravenous Gadavist . FINDINGS: Exam severely limited by motion artifact Diffusion weighted images demonstrate no evidence of a recent infarct or other diffusion abnormality. There is no obvious evidence of midline shift or mass effect. Diffuse and focal areas of abnormal s ignal are seen throughout the white matter and nonspecific pattern but most typical of remote white m atter is immediate. Areas of abnormal signal involving the basal ganglia are most typical of remote i schemic change. Faint areas of abnormal signal involving the neida suggestive of remote ischemic bonilla e.. Midline structures demonstrate normal morphology. The craniocervical junction appears within normal limits. Post contrast images demonstrate no abnormal enhancement. The dural venous sinuses appear pa tent. The visualized sinuses are clear and the globes are intact. Changes of chronic mastoiditis note d. IMPRESSION: 1. Moderate to severe generalized degenerative change of the slightly greater central component. Mild normal pressure hydrocephalus in the differential diagnosis. 2. Nonspecific diffuse white matter changes most typical remote white matter ischemia.
== END | disposition home or self-care (01) ==
LOC: RADMRIMAIN 09:35
PROVIDERS: ATTEND Family Medicine
DX: F02.80 Dementia in other diseases classified elsewhere, unspecified severity, without behavioral disturbance, psychotic disturbance, mood disturbance, and anxiety (principal); I63.9 Cerebral infarction, unspecified
CPT/HCPCS: 70553; A9585

== ENCOUNTER 2022-01-13 22:25 | Inpatient (IN) | payer MEDICARE, OTHER ==
--- NOTE | 2022-01-13 22:59 | XR ---
EXAMINATION TYPE: XR chest 2V DATE OF EXAM: 01/13/2022 COMPARISON: 11/07/2021 HISTORY: Difficulty breathing TECHNIQUE: 2 views FINDINGS: Heart size is normal. Lungs are clear of consolidation. There are no hilar masses. Thoracic aorta is atheromatous. There is cervical spine fusion surgery. Costophrenic angles are clear. There are small linear density right lower lobe. IMPRESSION: Mild scarring or subsegmental atelectasis in the right lung. There is clearing of the inf iltrate left lower lobe compared to old exam. No heart failure. Normal heart size.
[2022-01-13 23:27] LABS: Anisocytosis Slight; Basophils # (A) 0.1 k/uL (0-0.2); Basophils % (A) 1 %; Eosinophils % (A) 10 %; HCT 45.3 % (39.0-53.0); HGB 14.7 gm/dL (13.0-17.5); Lymphocytes # (A) 1.3 k/uL (1.0-4.8); Lymphocytes % (A) 14 %; MCH 31.6 pg (25.0-35.0); MCHC 32.5 g/dL (31.0-37.0); MCV 97.4 fL (80.0-100.0); Mean Platelet Volume 7.5; Monocytes # (A) 0.6 k/uL (0-1.0); Monocytes % (A) 6 %; Neutrophils # (A) 6.5 k/uL (1.3-7.7); Neutrophils % (A) 67 %; Platelet Count 338 k/uL (150-450); RBC 4.65 m/uL (4.30-5.90); RDW 16.2 % (11.5-15.5); WBC 9.7 k/uL (3.8-10.6)
[2022-01-13 23:45] LABS: Partial Thromboplastin Time 22.1 sec (22.0-30.0); Prothrombin Time 11.1 sec (9.0-12.0)
[2022-01-13 23:48] LABS: ALT 21 U/L (4-49); AST 34 U/L (17-59); African American GFR (CKD) >90 (>60 ml/min/1.73 sqM); Albumin 3.6 g/dL (3.5-5.0); Alkaline Phosphatase 60 U/L (38-126); Anion Gap 5 mmol/L; Blood Urea Nitrogen 7 mg/dL (9-20); Calcium 8.3 mg/dL (8.4-10.2); Carbon Dioxide 28 mmol/L (22-30); Chloride 105 mmol/L (98-107); Glucose 100 mg/dL (74-99); Magnesium 1.9 mg/dL (1.6-2.3); Non-African American GFR(CKD) >90 (>60 ml/min/1.73 sqM); Potassium 3.5 mmol/L (3.5-5.1); Sodium 138 mmol/L (137-145); Total Bilirubin 0.5 mg/dL (0.2-1.3); Total Protein 6.5 g/dL (6.3-8.2)
[2022-01-14] MEDS ORDERED: MAGNESIUM SULFATE-D5W PMX 1 GM in DEXTROSE/WATER 1 100ML.BAG IVPB ONE (00:41)
[2022-01-14] MEDS ORDERED: IPRATROPIUM-ALBUTEROL 3 ML NEB INHALATION STA (00:41)
[2022-01-14] MEDS ORDERED: methylPREDNISolone SOD SUCCI 125 MG/2 ML VIAL IV STA (00:42)
[2022-01-14] MEDS ORDERED: NALOXONE 0.4 MG/ML 1 ML VIAL IV PRN (00:46)
--- NOTE | 2022-01-14 00:46 | ED ---
SOB HPI - General Chief Complaint: Shortness of Breath Stated Complaint: KYLE Time Seen by Provider: 01/13/22 22:25 Source: patient, EMS Mode of arrival: EMS - History of Present Illness Initial Comments: 66-year-old male with chronic hypoxic respiratory failure on 2 L of home O2 while he sleeps presents to the emergency department with worsening shortness of breath. States that he has been more short of breath over the past 2 days and has been wearing his oxygen during the day. He has been using his nebulizer without improvement. Admits to nonproductive cough. No fevers. Has a history of COPD. Denies cardiac history. EMS arrived to the house to find his oxygen tubing coiled. They did give him a DuoNeb breathing treatment and a 500 bolus en route to the hospital. Patient denies any permanent his symptoms. No other alleviating, precipitating modifying factors - Related Data Home Medications Medication Instructions Recorded Confirmed Gabapentin [Neurontin] 300 mg PO TID 07/05/19 01/14/22 Ipratropium Nebulized [Atrovent 0.5 mg INHALATION RT-TID 07/05/19 01/14/22 Nebulized 0.2 MG/ML] gemfibroziL [Lopid] 600 mg PO DAILY 07/05/19 01/14/22 Albuterol Nebulized [Ventolin 2.5 mg INHALATION RT-TID 07/20/20 01/14/22 Nebulized] Bumetanide [BUMEX] 1 mg PO DAILY 11/07/21 01/14/22 Carbidopa-Levodopa 10-100 mg 1 tab PO TID 11/07/21 01/14/22 [Sinemet 10-100 mg] Folic Acid 1 mg PO DAILY 11/07/21 01/14/22 Furosemide [Lasix] 40 mg PO DAILY 11/07/21 01/14/22 Linaclotide [Linzess] 72 mcg PO DAILY 11/07/21 01/14/22 Lisinopril [Prinivil] 10 mg PO DAILY 11/07/21 01/14/22 Memantine [Namenda] 5 mg PO DAILY 11/07/21 01/14/22 Potassium Chloride [Klor-Con 20] 20 meq PO DAILY 11/07/21 01/14/22 Tiotropium [place] [Spiriva] 1 cap INHALATION RT-DAILY 11/07/21 01/14/22 predniSONE 10 mg PO DAILY 11/07/21 01/14/22 traMADol HCL [Ultram] 50 mg PO Q6HR PRN 11/07/21 01/14/22 Cholestyramine (with Sugar) 4 gm PO BID 01/14/22 01/14/22 [Questran Packet] Previous Rx's Medication Instructions Recorded Pantoprazole [Protonix] 40 mg PO AC-BRKFST 90 Days #90 tab 01/16/22 Allergies Allergy/AdvReac Type Severity Reaction Status Date / Time Earycbi-WME-IxK Reductase AdvReac MUSCLE Verified 01/14/22 07:57 Inhibitor PAIN , [Rugziip-Qsw-Kns Reductase ELEVATED Inhibitor] LIVER ENZYMES Review of Systems ROS Statement: Those systems with pertinent positive or pertinent negative responses have been documented in the HPI. ROS Other: All systems not noted in ROS Statement are negative. Past Medical History Past Medical History: Heart Failure, COPD, Dementia, GERD/Reflux, GI Bleed, Hearing Disorder / Deafness, Hypertension, Memory Impairment, Myocardial Infarction (AK), Musculoskeletal Disorder, Osteoarthritis (OA) Additional Past Medical History / Comment(s): Chronic hypoxic respiratory distress, home oxygen at 2/NC at HS, AK per EKG/ECHO documented in previous record but pt does not recall, Parkinsons, iron deficiency anemia, ileitis, gastritis, esophagitis, [place] TRI[place] bilaterally. Last Myocardial Infarction Date:: UNKNOWN SHOWS ON EKG ,ECHO" PER PAST MEDICAL RECORD. History of Any Multi-Drug Resistant Organisms: None Reported Past Surgical History: Appendectomy, Back Surgery, Tonsillectomy Additional Past Surgical History / Comment(s): Low back surgery, cervical surgery, EGD, colonoscopy Past Anesthesia/Blood Transfusion Reactions: No Reported Reaction Additional Past Anesthesia/Blood Transfusion Reaction / Comment(s): Pt has received blood in past without reaction. Past Psychological History: No Psychological Hx Reported Smoking Status: Former smoker Past Alcohol Use History: None Reported Past Drug Use History: None Reported - Past Family History Mother Family Medical History: No Reported History Additional Family Medical History / Comment(s): Mother had heart problems. Father Family Medical History: Vascular Disorder Additional Family Medical History / Comment(s): Father from aortic aneurysm rupture at the age of 75 yrs General Exam General appearance: alert, in no apparent distress Head exam: Present: atraumatic, normocephalic, normal inspection Eye exam: Present: normal appearance, PERRL, EOMI. Absent: scleral icterus, conjunctival injection, periorbital swelling ENT exam: Present: normal exam, mucous membranes moist Neck exam: Present: normal inspection. Absent: tenderness, meningismus, lymphadenopathy Respiratory exam: Present: wheezes, accessory muscle use, decreased breath sounds, other (conversational dyspnea). Absent: respiratory distress, rales, rhonchi, stridor Cardiovascular Exam: Present: regular rate, normal rhythm, normal heart sounds. Absent: systolic murmur, diastolic murmur, rubs, gallop, clicks GI/Abdominal exam: Present: soft, normal bowel sounds. Absent: distended, tenderness, guarding, rebound, rigid Extremities exam: Present: normal inspection, full ROM, normal capillary refill. Absent: tenderness, pedal edema, joint swelling, calf tenderness Back exam: Present: normal inspection Neurological exam: Present: alert, oriented X3, CN II-XII intact Psychiatric exam: Present: normal affect, normal mood Skin exam: Present: warm, dry, intact, normal color. Absent: rash Course Vital Signs 01/13/22 01/13/22 01/13/22 22:26 22:36 23:33 Temperature 97.7 F Pulse Rate 99 86 Respiratory 24 22 18 Rate Blood Pressure 155/88 152/83 O2 Sat by Pulse 95 96 Oximetry 01/14/22 01/14/22 01/14/22 00:52 01:00 01:06 Temperature Pulse Rate 93 102 H 104 H Respiratory 18 Rate Blood Pressure 158/88 O2 Sat by Pulse 95 Oximetry Medical Decision Making - Medical Decision Making Upon arrival patient is placed into room 6. A thorough history and physical exam is performed. Patient did a breathing treatments at home prior to EMS a rrival. Second breathing treatment was given in the ambulance. Patient does arrive and is diffusely wheezing. Laboratory studies were conducted and reviewed. Patient's for Covid and influenza which is negative. Chest x-rays performed which demonstrates mild subsegmental atelectasis. Results are discussed patient. Continues to be wheezy. Recommended admission for COPD exacerbation the patient agreed to. Page Dr. Perez and currently awaiting callback - Lab Data Result diagrams: 01/15/22 04:33 01/15/22 04:33 Lab Results 01/13/22 01/13/22 01/13/22 Range/Units 23:12 23:12 23:12 WBC 9.7 (3.8-10.6) k/uL RBC 4.65 (4.30-5.90) m/uL Hgb 14.7 (13.0-17.5) gm/dL Hct 45.3 (39.0-53.0) % MCV 97.4 (80.0-100.0) fL MCH 31.6 (25.0-35.0) pg MCHC 32.5 (31.0-37.0) g/dL RDW 16.2 H (11.5-15.5) % Plt Count 338 (150-450) k/uL MPV 7.5 Immature Gran % (Auto) % Absolute Nucleated RBC (0.00-0.00) X 10*3/uL Neutrophils % 67 % Lymphocytes % 14 % Monocytes % 6 % Eosinophils % 10 % Basophils % 1 % Immature Gran # (0.00-0.04) X 10*3/uL Neutrophils # 6.5 (1.3-7.7) k/uL Lymphocytes # 1.3 (1.0-4.8) k/uL Monocytes # 0.6 (0-1.0) k/uL Eosinophils # 1.0 H (0-0.7) k/uL Basophils # 0.1 (0-0.2) k/uL NRBC/100 WBC Diff (0.0-0.0) /100 WBCS Anisocytosis Slight PT 11.1 (9.0-12.0) sec INR 1.0 (<1.2) APTT 22.1 (22.0-30.0) sec Sodium 138 (137-145) mmol/L Potassium 3.5 (3.5-5.1) mmol/L Chloride 105 (98-107) mmol/L Carbon Dioxide 28 (22-30) mmol/L Anion Gap 5 mmol/L BUN 7 L (9-20) mg/dL Creatinine 0.59 L (0.66-1.25) mg/dL Est GFR (CKD-EPI)AfAm >90 (>60 ml/min/1.73 sqM) Est GFR (CKD-EPI)NonAf >90 (>60 ml/min/1.73 sqM) BUN/Creatinine Ratio (12.00-20.00) Ratio Glucose 100 H (74-99) mg/dL Plasma Lactic Acid Les (0.7-2.0) mmol/L Calcium 8.3 L (8.4-10.2) mg/dL Magnesium 1.9 (1.6-2.3) mg/dL Total Bilirubin 0.5 (0.2-1.3) mg/dL AST 34 (17-59) U/L ALT 21 (4-49) U/L Alkaline Phosphatase 60 (38-126) U/L Troponin I (0.000-0.034) ng/mL NT-Pro-B Natriuret Pep pg/mL Total Protein 6.5 (6.3-8.2) g/dL Albumin 3.6 (3.5-5.0) g/dL Coronavirus (PCR) (Not Detectd) Influenza Type A RNA (Not Detectd) Influenza Type B (PCR) (Not Detectd) 01/13/22 01/13/22 01/13/22 Range/Units 23:12 23:12 23:12 WBC (3.8-10.6) k/uL RBC (4.30-5.90) m/uL Hgb (13.0-17.5) gm/dL Hct (39.0-53.0) % MCV (80.0-100.0) fL MCH (25.0-35.0) pg MCHC (31.0-37.0) g/dL RDW (11.5-15.5) % Plt Count (150-450) k/uL MPV Immature Gran % (Auto) % Absolute Nucleated RBC (0.00-0.00) X 10*3/uL Neutrophils % % Lymphocytes % % Monocytes % % Eosinophils % % Basophils % % Immature Gran # (0.00-0.04) X 10*3/uL Neutrophils # (1.3-7.7) k/uL Lymphocytes # (1.0-4.8) k/uL Monocytes # (0-1.0) k/uL Eosinophils # (0-0.7) k/uL Basophils # (0-0.2) k/uL NRBC/100 WBC Diff (0.0-0.0) /100 WBCS Anisocytosis PT (9.0-12.0) sec INR (<1.2) APTT (22.0-30.0) sec Sodium (137-145) mmol/L Potassium (3.5-5.1) mmol/L Chloride (98-107) mmol/L Carbon Dioxide (22-30) mmol/L Anion Gap mmol/L BUN (9-20) mg/dL Creatinine (0.66-1.25) mg/dL Est GFR (CKD-EPI)AfAm (>60 ml/min/1.73 sqM) Est GFR (CKD-EPI)NonAf (>60 ml/min/1.73 sqM) BUN/Creatinine Ratio (12.00-20.00) Ratio Glucose (74-99) mg/dL Plasma Lactic Acid Les 1.1 (0.7-2.0) mmol/L Calcium (8.4-10.2) mg/dL Magnesium (1.6-2.3) mg/dL Total Bilirubin (0.2-1.3) mg/dL AST (17-59) U/L ALT (4-49) U/L Alkaline Phosphatase (38-126) U/L Troponin I <0.012 (0.000-0.034) ng/mL NT-Pro-B Natriuret Pep 1130 pg/mL Total Protein (6.3-8.2) g/dL Albumin (3.5-5.0) g/dL Coronavirus (PCR) (Not Detectd) Influenza Type A RNA (Not Detectd) Influenza Type B (PCR) (Not Detectd) 01/13/22 01/13/22 01/15/22 Range/Units 23:12 23:12 04:33 WBC 10.07 H (3.8-10.6) k/uL RBC 4.32 L (4.30-5.90) m/uL Hgb 13.1 (13.0-17.5) gm/dL Hct 41.7 (39.0-53.0) % MCV 96.5 (80.0-100.0) fL MCH 30.3 (25.0-35.0) pg MCHC 31.4 L (31.0-37.0) g/dL RDW 16.2 H (11.5-15.5) % Plt Count 317 (150-450) k/uL MPV 10.1 Immature Gran % (Auto) 0.4 % Absolute Nucleated RBC 0 (0.00-0.00) X 10*3/uL Neutrophils % 89.2 % Lymphocytes % 6.8 % Monocytes % 3.5 % Eosinophils % 0 % Basophils % 0.1 % Immature Gran # 0.04 (0.00-0.04) X 10*3/uL Neutrophils # 8.99 H (1.3-7.7) k/uL Lymphocytes # 0.68 L (1.0-4.8) k/uL Monocytes # 0.35 (0-1.0) k/uL Eosinophils # 0 L (0-0.7) k/uL Basophils # 0.01 (0-0.2) k/uL NRBC/100 WBC Diff 0 (0.0-0.0) /100 WBCS Anisocytosis PT (9.0-12.0) sec INR (<1.2) APTT (22.0-30.0) sec Sodium (137-145) mmol/L Potassium (3.5-5.1) mmol/L Chloride (98-107) mmol/L Carbon Dioxide (22-30) mmol/L Anion Gap mmol/L BUN (9-20) mg/dL Creatinine (0.66-1.25) mg/dL Est GFR (CKD-EPI)AfAm (>60 ml/min/1.73 sqM) Est GFR (CKD-EPI)NonAf (>60 ml/min/1.73 sqM) BUN/Creatinine Ratio (12.00-20.00) Ratio Glucose (74-99) mg/dL Plasma Lactic Acid Les (0.7-2.0) mmol/L Calcium (8.4-10.2) mg/dL Magnesium (1.6-2.3) mg/dL Total Bilirubin (0.2-1.3) mg/dL AST (17-59) U/L ALT (4-49) U/L Alkaline Phosphatase (38-126) U/L Troponin I (0.000-0.034) ng/mL NT-Pro-B Natriuret Pep pg/mL Total Protein (6.3-8.2) g/dL Albumin (3.5-5.0) g/dL Coronavirus (PCR) Not Detected (Not Detectd) Influenza Type A RNA Not Detected (Not Detectd) Influenza Type B (PCR) Not Detected (Not Detectd) 01/15/22 Range/Units 04:33 WBC (3.8-10.6) k/uL RBC (4.30-5.90) m/uL Hgb (13.0-17.5) gm/dL Hct (39.0-53.0) % MCV (80.0-100.0) fL MCH (25.0-35.0) pg MCHC (31.0-37.0) g/dL RDW (11.5-15.5) % Plt Count (150-450) k/uL MPV Immature Gran % (Auto) % Absolute Nucleated RBC (0.00-0.00) X 10*3/uL Neutrophils % % Lymphocytes % % Monocytes % % Eosinophils % % Basophils % % Immature Gran # (0.00-0.04) X 10*3/uL Neutrophils # (1.3-7.7) k/uL Lymphocytes # (1.0-4.8) k/uL Monocytes # (0-1.0) k/uL Eosinophils # (0-0.7) k/uL Basophils # (0-0.2) k/uL NRBC/100 WBC Diff (0.0-0.0) /100 WBCS Anisocytosis PT (9.0-12.0) sec INR (<1.2) APTT (22.0-30.0) sec Sodium 139 (137-145) mmol/L Potassium 3.8 (3.5-5.1) mmol/L Chloride 102 (98-107) mmol/L Carbon Dioxide 27.7 H (22-30) mmol/L Anion Gap 9.30 L mmol/L BUN 10.6 (9-20) mg/dL Creatinine 0.6 (0.66-1.25) mg/dL Est GFR (CKD-EPI)AfAm 119.7 (>60 ml/min/1.73 sqM) Est GFR (CKD-EPI)NonAf 103.3 (>60 ml/min/1.73 sqM) BUN/Creatinine Ratio 17.67 (12.00-20.00) Ratio Glucose 142 H (74-99) mg/dL Plasma Lactic Acid Les (0.7-2.0) mmol/L Calcium 8.6 L (8.4-10.2) mg/dL Magnesium (1.6-2.3) mg/dL Total Bilirubin (0.2-1.3) mg/dL AST (17-59) U/L ALT (4-49) U/L Alkaline Phosphatase (38-126) U/L Troponin I (0.000-0.034) ng/mL NT-Pro-B Natriuret Pep pg/mL Total Protein (6.3-8.2) g/dL Albumin (3.5-5.0) g/dL Coronavirus (PCR) (Not Detectd) Influenza Type A RNA (Not Detectd) Influenza Type B (PCR) (Not Detectd) - EKG Data EKG Comments: EKG demonstrates sinus rhythm with a rate of 86.. CA interval 139. QRS 78. QTC 445. No acute ST segment elevations or depressions Disposition Clinical Impression: Acute exacerbation of chronic obstructive pulmonary disease Disposition: ADMITTED IP TO THIS HOSP Condition: Stable Is patient prescribed a controlled substance at d/c from ED?: No Decision to Admit Reason: Admit from EC Decision Date: 01/14/22 Decision Time: 00:45
[2022-01-14] MEDS ORDERED: IPRATROPIUM-ALBUTEROL 3 ML NEB INHALATION PRN (01:14)
[2022-01-14] MEDS ORDERED: IPRATROPIUM-ALBUTEROL 3 ML NEB INHALATION SCH (04:00)
[2022-01-14] MEDS: IPRATROPIUM-ALBUTEROL 3 ML NEB INHALATION SCH ×4 (07:28→19:19)
[2022-01-14] MEDS: methylPREDNISolone SOD SUCCI 125 MG/2 ML VIAL IV SCH ×2 (07:48→20:18)
[2022-01-14] MEDS ORDERED: traMADol 50 MG TAB PO PRN (12:14)
[2022-01-14] MEDS ORDERED: IPRATROPIUM 0.5 MG/2.5 ML NEBU INHALATION SCH (13:00)
--- NOTE | 2022-01-14 14:02 | HP ---
HISTORY AND PHYSICAL This 66-year-old white male came in with acute hypoxemic respiratory failure. Despite 2 L oxygen at home, he said he could not take a breath; he could not catch his breath even walking around his house; only when he was sitting down could he catch his breath. Much worse than normal. He normally wears 2 L of oxygen. EMS found his oxygen tubing coiled, so they gave him a breathing treatment. He was admitted to the hospital with COPD exacerbation. Home medicines: See list. ALLERGIES TO STATINS. Fourteen-point review of systems: PND orthopnea and dyspnea with exertion, cough, congestion, green-yellow phlegm. Past medical history: See old chart. Family history: See old chart. All reviewed. Temperature 97.7, pulse 150s over 80s, O2 was low to mid 90s on 2 L, respiratory 18 to 25, temperature 97.9. Cardiovascular decreased breath sounds x4, scattered wheeze x4. Heart: S1, S2. Hematologic negative Homans. Psych fair mood and affect. Neurologic alert and oriented x3. COVID and influenza are all negative. ASSESSMENT: 1. Chronic obstructive pulmonary disease exacerbation. 2. Tracheobronchitis. 3. Acute hypoxemic respiratory distress, much worse than normal. Possible noncompliance or medication error with the machine being broken and not wearing oxygen if oxygen was coiled at home; unclear. 4. Heart failure and heart disease. Please see further orders. MMODL / IJN: [id number] /
[2022-01-14] MEDS: GABAPENTIN 300 MG CAP PO SCH ×2 (16:21→22:47)
[2022-01-14] MEDS: CARBIDOPA-LEVODOPA 10-100 MG 1 EACH TAB PO SCH ×2 (16:21→22:47)
--- NOTE | 2022-01-14 16:41 | P.CNPUL ---
History of Present Illness Consult date: 01/14/22 Reason for consult: dyspnea, cough, COPD Chief complaint: Progressive shortness of breath for 2 days History of present illness: Mr. Anderson is a 66-year-old male with extensive history of smoking and nicotine use in the past used to smoke one to 2 packs per day and quit several years ago patient has end-stage COPD on 2-3 L oxygen at home along with nebulizer treatment patient developed increasing shortness of breath cough, due to shortness of breath patient has been using nebulizer on a regular basis without any significant relief cough is mostly dry and nonproductive due to severe respiratory distress the EMS was notified, was noted to have a pinched tubing. On specific questioning he denies any chest pain, denies any hemoptysis denies any night sweats fever or chills, denies any nausea vomiting diarrhea headache, his chest x-ray shows pulmonary scarring bilateral basal atelectasis more so on the right side, prior x-ray shows left-sided pneumonia which appeared to have improved, his covert as well as influenza A and B were negative Review of Systems All systems: negative Past Medical History Past Medical History: Heart Failure, COPD, Dementia, GERD/Reflux, GI Bleed, Hearing Disorder / Deafness, Hypertension, Memory Impairment, Myocardial Infarction (ID), Musculoskeletal Disorder, Osteoarthritis (OA) Additional Past Medical History / Comment(s): Chronic hypoxic respiratory distress, home oxygen at 2/NC at HS, ID per EKG/ECHO documented in previous record but pt does not recall, Parkinsons, iron deficiency anemia, ileitis, gastritis, esophagitis, [place] bilaterally. Last Myocardial Infarction Date:: UNKNOWN SHOWS ON EKG ,ECHO" PER PAST MEDICAL RECORD. History of Any Multi-Drug Resistant Organisms: None Reported Past Surgical History: Appendectomy, Back Surgery, Tonsillectomy Additional Past Surgical History / Comment(s): Low back surgery, cervical surgery, EGD, colonoscopy Past Anesthesia/Blood Transfusion Reactions: No Reported Reaction Additional Past Anesthesia/Blood Transfusion Reaction / Comment(s): Pt has received blood in past without reaction. Past Psychological History: No Psychological Hx Reported Smoking Status: Former smoker Past Alcohol Use History: None Reported Past Drug Use History: None Reported - Past Family History Mother Family Medical History: No Reported History Additional Family Medical History / Comment(s): Mother had heart problems. Father Family Medical History: Vascular Disorder Additional Family Medical History / Comment(s): Father from aortic aneurysm rupture at the age of 75 yrs Medications and Allergies Home Medications Medication Instructions Recorded Confirmed Type Gabapentin [Neurontin] 300 mg PO TID 07/05/19 01/14/22 History Ipratropium Nebulized [Atrovent 0.5 mg INHALATION RT-TID 07/05/19 01/14/22 History Nebulized 0.2 MG/ML] Omeprazole 20 mg PO DAILY 07/05/19 01/14/22 History gemfibroziL [Lopid] 600 mg PO DAILY 07/05/19 01/14/22 History Albuterol Nebulized [Ventolin 2.5 mg INHALATION RT-TID 07/20/20 01/14/22 History Nebulized] Albuterol Sulfate [Ventolin HFA] 2 puff INHALATION RT-QID PRN 07/20/20 01/14/22 History Bumetanide [BUMEX] 1 mg PO DAILY 11/07/21 01/14/22 History Carbidopa-Levodopa 10-100 mg 1 tab PO TID 11/07/21 01/14/22 History [Sinemet 10-100] Folic Acid 1 mg PO DAILY 11/07/21 01/14/22 History Furosemide [Lasix] 40 mg PO DAILY 11/07/21 01/14/22 History Linaclotide [Linzess] 72 mcg PO DAILY 11/07/21 01/14/22 History Lisinopril [Prinivil] 10 mg PO DAILY 11/07/21 01/14/22 History Memantine [Namenda] 5 mg PO DAILY 11/07/21 01/14/22 History Potassium Chloride [Klor-Con 20] 20 meq PO DAILY 11/07/21 01/14/22 History Tiotropium [place] [Spiriva] 1 cap INHALATION RT-DAILY 11/07/21 01/14/22 History predniSONE 10 mg PO DAILY 11/07/21 01/14/22 History traMADol HCL [Ultram] 50 mg PO Q6HR PRN 11/07/21 01/14/22 History Cholestyramine (with Sugar) 4 gm PO BID 01/14/22 01/14/22 History [Questran] Allergies Allergy/AdvReac Type Severity Reaction Status Date / Time Nmftkfr-UJD-RyI Reductase AdvReac MUSCLE Verified 01/14/22 07:57 Inhibitor PAIN , [Knaplgd-Fin-Gul Reductase ELEVATED Inhibitor] LIVER ENZYMES Physical Exam Vitals: Vital Signs Temp Pulse Pulse Resp BP BP Pulse Ox 01/14/22 15:13 112 H 01/14/22 15:05 111 H 95 01/14/22 14:00 99.0 F 127 H 20 166/98 95 01/14/22 11:22 100 01/14/22 11:12 104 H 01/14/22 08:00 97.5 F L 99 16 132/85 95 01/14/22 07:41 98 01/14/22 07:33 102 H 95 01/14/22 02:25 97.6 F 80 22 166/91 97 01/14/22 01:06 104 H 01/14/22 01:00 102 H 01/14/22 00:52 93 18 158/88 95 01/13/22 23:33 86 18 152/83 96 01/13/22 22:36 22 01/13/22 22:26 97.7 F 99 24 155/88 95 Intake and Output 01/14/22 01/14/22 01/14/22 06:59 14:59 22:59 Other: Voiding Method Toilet Toilet Urinal Urinal # Voids 2 Weight 62.596 kg - Constitutional General appearance: average body habitus, cooperative, disheveled, mild distress - Neck Neck: normal ROM Carotids: bilateral: upstroke normal Thyroid: bilateral: normal size - Respiratory Respiratory: bilateral: diminished, wheezing - Cardiovascular Rhythm: regular Heart sounds: normal: S1, S2 Abnormal Heart Sounds: systolic murmur - Gastrointestinal General gastrointestinal: normal bowel sounds, soft - Integumentary Integumentary: normal turgor - Neurologic Neurologic: CNII-XII intact - Musculoskeletal Musculoskeletal: gait normal, generalized weakness, strength equal bilaterally - Psychiatric Psychiatric: A&O x's 3, appropriate affect, intact judgment & insight Results - Laboratory Findings CBC and BMP: 01/13/22 23:12 01/13/22 23:12 PT/INR, D-dimer PT 11.1 sec (9.0-12.0) 01/13/22 23:12 INR 1.0 (<1.2) 01/13/22 23:12 Abnormal lab findings: Abnormal Labs 01/13/22 01/13/22 23:12 23:12 RDW 16.2 H Eosinophils # 1.0 H BUN 7 L Creatinine 0.59 L Glucose 100 H Calcium 8.3 L - Diagnostic Findings Chest x-ray: report reviewed, image reviewed Assessment and Plan Assessment: Acute COPD exacerbation Tracheobronchitis Right lung atelectasis basal Resolving left-sided pneumonia Hypertension hypertensive cardiovascular disease Chronic hypoxic respiratory failure Extensive history of smoking and nicotine use in the past Plan: Continue supplemental oxygen Broad-spectrum antibiotics IV steroids Breathing treatments We'll get computed tomography scan of the chest to evaluate right lung atelectasis at the bases Time with Patient: Greater than 30
--- NOTE | 2022-01-14 19:42 | CT ---
EXAMINATION TYPE: CT chest wo con CT DLP: 300.9 mGycm, Automated exposure control for dose reduction was used. DATE OF EXAM: 01/14/2022 5:19 PM COMPARISON: Chest radiograph from one day prior. Multiple CTs of the chest with most recent 11/07/2021 CLINICAL INDICATION:Male, 66 years old with history of RLL atelectasis. TECHNIQUE: Multiple axial images were obtained through the chest without IV contrast. Lack of IV or o ral contrast limits evaluation of solid and hollow organ viscera. FINDINGS: LUNGS/ PLEURA: There is centrilobular emphysematous changes throughout the lungs most pronounced in t he lung apices. Stable right upper lobe atelectasis/scarring is present as well as within the lung ba ses. Additional scarring changes are seen most pronounced in the lingula and right middle lobe there are no suspicious pulmonary nodules. Left upper lobe nodular-like area is stable back to 2013 measuri ng 4 mm (series 204 image 30). AIRWAY: Patent and unremarkable.. HEART: Size within normal limits. MEDIASTINUM: No gross evidence of adenopathy. VASCULATURE: No aortic aneurysm. Atherosclerosis of the arterial vasculature including moderate cassandra re coronary artery disease. MUSCULOSKELETAL: No acute osseous abnormalities. There is moderate multilevel disc degeneration bonilla es. There is remote right-sided rib fractures present. There is compression deformity of T8, T10, T11 and T12 worse at T8. There is near complete vertebral body height loss at T8. Fixation hardware in t he lower cervical spine. SOFT TISSUES/LYMPH NODES: Unremarkable. LOWER NECK: No significant findings. UPPER ABDOMEN: No significant findings. IMPRESSION: 1. No evidence for airspace consolidation or acute intrathoracic process. 2. Moderate emphysema changes. 3. Moderate multilevel disc degeneration changes. 4. Moderate Coronary artery atherosclerosis. 5. Stable left upper lobe pulmonary nodule measuring 4 mm image 2013. 6. Multilevel compression deformities throughout the spine likely chronic. These are worse at T8 with near complete height loss.
[2022-01-14] MEDS: CHOLESTYRAMINE (WITH SUGAR) 4 GM PACKET PO SCH (20:19)
[2022-01-15] MEDS ORDERED: NON FORMULARY DRUG (Tiotropium Bromide [Spiriva] 18 MCG Each) INHALATION SCH (08:00)
[2022-01-15] MEDS: IPRATROPIUM-ALBUTEROL 3 ML NEB INHALATION SCH ×4 (08:00→21:08)
[2022-01-15] MEDS: FENOFIBRATE 160 MG TAB PO SCH (08:58)
[2022-01-15] MEDS: CARBIDOPA-LEVODOPA 10-100 MG 1 EACH TAB PO SCH ×3 (08:58→21:56)
[2022-01-15] MEDS: PANTOPRAZOLE 40 MG TABLET PO SCH (08:58)
[2022-01-15] MEDS: CHOLESTYRAMINE (WITH SUGAR) 4 GM PACKET PO SCH ×2 (08:58→21:55)
[2022-01-15] MEDS: GABAPENTIN 300 MG CAP PO SCH ×3 (08:59→21:56)
[2022-01-15] MEDS: POTASSIUM CHLORIDE ER 20 MEQ TAB.ER PO SCH (08:59)
[2022-01-15] MEDS: lisinopriL 10 MG TAB PO SCH (08:59)
[2022-01-15] MEDS: MEMANTINE 5 MG TAB PO SCH (08:59)
[2022-01-15] MEDS: FUROSEMIDE 40 MG TAB PO SCH (08:59)
[2022-01-15] MEDS: methylPREDNISolone SOD SUCCI 125 MG/2 ML VIAL IV SCH ×2 (08:59→23:02)
[2022-01-15] MEDS: FOLIC ACID 1 MG TAB PO SCH (09:03)
[2022-01-15] MEDS: BUMETANIDE 1 MG TAB PO SCH (09:03)
[2022-01-15 09:11] LABS: Basophils # (A) 0.01 X 10*3/uL (0.00-0.10); Basophils % (A) 0.1 %; Eosinophils # (A) 0 X 10*3/uL (0.04-0.35); Eosinophils % (A) 0 %; HCT 41.7 % (39.6-50.0); HGB 13.1 g/dL (13.0-17.0); Immature Grans, Automated 0.4 %; Lymphocytes # (A) 0.68 X 10*3/uL (0.90-5.00); Lymphocytes % (A) 6.8 %; MCH 30.3 pg (27.0-32.0); MCHC 31.4 g/dL (32.0-37.0); MCV 96.5 fL (80.0-97.0); Mean Platelet Volume 10.1 fL (9.5-12.2); Monocytes # (A) 0.35 X 10*3/uL (0.20-1.00); Monocytes % (A) 3.5 %; NRBC Per 100 WBC 0 /100 WBCS (0.0-0.0); Neutrophils # (A) 8.99 X 10*3/uL (1.80-7.70); Neutrophils % (A) 89.2 %; Platelet Count 317 X 10*3/uL (140-440); RBC 4.32 X 10*6/uL (4.40-5.60); RDW 16.2 % (11.5-14.5); WBC 10.07 X 10*3/uL (4.50-10.00)
[2022-01-15 09:21] LABS: African American GFR (CKD) 119.7 (60.0-200.0); Anion Gap 9.3 mmol/L (10.00-18.00); BUN/Creat Ratio 17.67 Ratio (12.00-20.00); Blood Urea Nitrogen 10.6 mg/dL (9.0-27.0); Calcium 8.6 mg/dL (8.7-10.3); Carbon Dioxide 27.7 mmol/L (20.0-27.5); Non-African American GFR(CKD) 103.3 (60.0-200.0); Potassium 3.8 mmol/L (3.5-5.5)
[2022-01-15] MEDS: NON FORMULARY DRUG (Linaclotide [Linzess] 72 MCG Capsule) PO SCH (11:40)
[2022-01-16] MEDS: FOLIC ACID 1 MG TAB PO SCH (07:35)
[2022-01-16] MEDS: POTASSIUM CHLORIDE ER 20 MEQ TAB.ER PO SCH (07:35)
[2022-01-16] MEDS: PANTOPRAZOLE 40 MG TABLET PO SCH (07:36)
[2022-01-16] MEDS: lisinopriL 10 MG TAB PO SCH (07:36)
[2022-01-16] MEDS: FUROSEMIDE 40 MG TAB PO SCH (07:36)
[2022-01-16] MEDS: MEMANTINE 5 MG TAB PO SCH (07:36)
[2022-01-16] MEDS: BUMETANIDE 1 MG TAB PO SCH (07:36)
[2022-01-16] MEDS: FENOFIBRATE 160 MG TAB PO SCH (07:36)
[2022-01-16] MEDS: GABAPENTIN 300 MG CAP PO SCH (07:36)
[2022-01-16] MEDS: methylPREDNISolone SOD SUCCI 125 MG/2 ML VIAL IV SCH (07:37)
[2022-01-16] MEDS: CARBIDOPA-LEVODOPA 10-100 MG 1 EACH TAB PO SCH (07:37)
[2022-01-16] MEDS: CHOLESTYRAMINE (WITH SUGAR) 4 GM PACKET PO SCH (07:40)
[2022-01-16] MEDS: IPRATROPIUM-ALBUTEROL 3 ML NEB INHALATION SCH ×3 (07:42→15:38)
[2022-01-16] MEDS: NON FORMULARY DRUG (Linaclotide [Linzess] 72 MCG Capsule) PO SCH (09:06)
[2022-01-16 14:03] VITALS: BP 106/68; RESP 16; TEMP 97.7
[2022-01-16 15:50] VITALS: PULSE 106
--- NOTE | 2022-01-16 18:01 | P.PN ---
Subjective Progress Note Date: 01/15/22 Principal diagnosis: Acute COPD exacerbation Tracheobronchitis Right lung atelectasis basal Resolving left-sided pneumonia Hypertension hypertensive cardiovascular disease Chronic hypoxic respiratory failure Extensive history of smoking and nicotine use in the past 01/15/2022, patient seen eval examined during the rounds labs reviewed medications reviewed care plan discussed, respiratory status remains stable denies any chest pain, patient underwent computed tomography scan of the chest without IV contrast, no acute pneumonia identified, moderate emphysema noted, multilevel degenerative disc disease seen, stable left upper nodule since 2012, multiple chronic compression fractures of thoracic spine worse at T8 level Mr. Anderson is a 66-year-old male with extensive history of smoking and nicotine use in the past used to smoke one to 2 packs per day and quit several years ago patient has end-stage COPD on 2-3 L oxygen at home along with nebulizer treatment patient developed increasing shortness of breath cough, due to shortness of breath patient has been using nebulizer on a regular basis without any significant relief cough is mostly dry and nonproductive due to severe respiratory distress the EMS was notified, was noted to have a pinched tubing. On specific questioning he denies any chest pain, denies any hemoptysis denies any night sweats fever or chills, denies any nausea vomiting diarrhea headache, his chest x-ray shows pulmonary scarring bilateral basal atelectasis more so on the right side, prior x-ray shows left-sided pneumonia which appeared to have improved, his covert as well as influenza A and B were negative Objective - Vital Signs Vital signs: Vital Signs Temp 98.4 F 01/15/22 08:00 Pulse 102 H 01/15/22 11:43 Resp 18 01/15/22 08:00 BP 154/84 01/15/22 08:00 Pulse Ox 93 L 01/15/22 08:00 Intake & Output 01/14/22 01/15/22 01/15/22 18:59 06:59 18:59 Intake Total 300 Balance 300 Intake: Oral 300 Other: Voiding Method Toilet Toilet Urinal Urinal # Voids 4 1 # Bowel Movements 0 - Exam - Constitutional General appearance: average body habitus, cooperative, disheveled, mild distress - Neck Neck: normal ROM Carotids: bilateral: upstroke normal Thyroid: bilateral: normal size - Respiratory Respiratory: bilateral: diminished, wheezing - Cardiovascular Rhythm: regular Heart sounds: normal: S1, S2 Abnormal Heart Sounds: systolic murmur - Gastrointestinal General gastrointestinal: normal bowel sounds, soft - Integumentary Integumentary: normal turgor - Neurologic Neurologic: CNII-XII intact - Musculoskeletal Musculoskeletal: gait normal, generalized weakness, strength equal bilaterally - Psychiatric Psychiatric: A&O x's 3, appropriate affect, intact judgment & insight - Labs CBC & Chem 7: 01/15/22 04:33 01/15/22 04:33 Labs: Abnormal Lab Results - Last 24 Hours (Table) 01/15/22 01/15/22 Range/Units 04:33 04:33 WBC 10.07 H (4.50-10.00) X 10*3/uL RBC 4.32 L (4.40-5.60) X 10*6/uL MCHC 31.4 L (32.0-37.0) g/dL RDW 16.2 H (11.5-14.5) % Neutrophils # 8.99 H (1.80-7.70) X 10*3/uL Lymphocytes # 0.68 L (0.90-5.00) X 10*3/uL Eosinophils # 0 L (0.04-0.35) X 10*3/uL Carbon Dioxide 27.7 H (20.0-27.5) mmol/L Anion Gap 9.30 L (10.00-18.00) mmol/L Glucose 142 H (70-110) mg/dL Calcium 8.6 L (8.7-10.3) mg/dL Assessment and Plan Assessment: Left upper lobe 3 mm nodule unchanged from 2030 Acute COPD exacerbation Tracheobronchitis Right lung atelectasis basal Resolving left-sided pneumonia 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
== END 2022-01-16 16:45 | disposition home health service (06) | DRG 190 ==
LOC: EC 22:25 → 4SSUR 01-14 00:46 → OBSVTOIN 01-16 08:55
PROVIDERS: ADMIT Family Medicine; ATTEND Family Medicine
DX: J44.1 Chronic obstructive pulmonary disease with (acute) exacerbation (principal); J96.21 Acute and chronic respiratory failure with hypoxia; J18.9 Pneumonia, unspecified organism; M48.54XA Collapsed vertebra, not elsewhere classified, thoracic region, initial encounter for fracture; J44.0 Chronic obstructive pulmonary disease with (acute) lower respiratory infection; Z20.822 Contact with and (suspected) exposure to COVID-19; H91.90 Unspecified hearing loss, unspecified ear; F03.90 Unspecified dementia, unspecified severity, without behavioral disturbance, psychotic disturbance, mood disturbance, and anxiety; I10 Essential (primary) hypertension; M19.90 Unspecified osteoarthritis, unspecified site; M47.814 Spondylosis without myelopathy or radiculopathy, thoracic region; D50.9 Iron deficiency anemia, unspecified; I11.0 Hypertensive heart disease with heart failure; I50.9 Heart failure, unspecified; G20 Parkinson's disease; K21.00 Gastro-esophageal reflux disease with esophagitis, without bleeding; Z99.81 Dependence on supplemental oxygen; I25.2 Old myocardial infarction; Z87.891 Personal history of nicotine dependence; Z79.899 Other long term (current) drug therapy; Z88.8 Allergy status to other drugs, medicaments and biological substances; Z82.49 Family history of ischemic heart disease and other diseases of the circulatory system
CPT/HCPCS: 36415; 71046; 71250; 80048; 80053; 83605; 83735; 83880; 84484; 85025; 85610; 85730; 87502; 87635; 93005; 94640; 94760; 96365; 96375; 99285